=== PATIENT | female | born 1985 | race Caucasian/White ===

== ENCOUNTER 2021-02-20 08:46 | Outpatient (REF) | payer OTHER, SELFPAY ==
[2021-02-20 09:35] LABS: MANUAL DIFF FLAG NO
[2021-02-20 09:48] LABS: Basophils Percent Auto 0.6 % (0-2); Eosinophils Absolute Auto 0.2 X10*3/uL (0.0-0.4); Eosinophils Percent Auto 2.1 % (0-4); Hematocrit 38.3 % (37-47); Hemoglobin 11.8 g/dl (12.0-16.0); Imm Gran Abs Auto 0.03 X10*3/uL (0.00-0.03); Imm Gran Pct Auto 0.4 % (0.0-0.4); Lymphocytes Absolute Auto 2.9 X10*3/uL (1.2-4.9); Lymphocytes Percent Auto 40.5 % (20-40); Mean Corpuscular HGB Conc 30.8 g/dl (31.0-35.0); Mean Corpuscular Hemoglobin 24.7 pg (27.0-33.0); Mean Corpuscular Volume 80.3 fL (80-98); Mean Platelet Volume 10.6 fL (9.4-12.3); Monocytes Absolute Auto 0.6 X10*3/uL (0.1-1.2); Monocytes Percent Auto 7.9 % (2-11); Neutrophils Absolute Auto 3.5 X10*3/uL (2.0-8.3); Neutrophils Percent Auto 48.5 % (45-73); Platelet Count 278 X10*3/uL (160-400); Red Blood Count 4.77 X10*6/uL (4.20-5.50); Red Cell Distribution Width 14.3 % (11.0-16.0); White Blood Count 7.2 X10*3/uL (4.8-10.8)
[2021-02-20 09:56] LABS: Alanine Aminotransferase 31 U/L (0-31); Albumin Level 4.1 g/dL (3.5-5.0); Alkaline Phosphatase 74 U/L (39-117); Anion Gap 14 (12-20); Aspartate Amino Transferase 27 U/L (5-31); Bilirubin Total 0.4 mg/dL (0.0-1.0); Blood Urea Nitrogen 12 mg/dL (9-16); Calcium 9.2 mg/dL (8.4-10.2); Carbon Dioxide 25 mmol/L (22-29); Chloride 104 mmol/L (96-108); Cholesterol 190 mg/dL; Estimated Glomerular Filt Rate > 60; Glucose Fasting 167 mg/dL (60-99); HDL Cholesterol 46 mg/dL; LDL Cholesterol Calculated 107 mg/dl; Potassium 4.4 mmol/L (3.3-5.1); Sodium 139 mmol/L (135-145); Total Protein 7.5 g/dL (6.5-8.0); Triglycerides 187 mg/dL
[2021-02-20 10:16] LABS: Estimated Average Glucose 232 mg/dL; Hemoglobin A1c % 9.7 %
[2021-02-20 10:18] LABS: TSH reflex Free T4 5.92 uIU/mL (0.32-4.0)
[2021-02-20 12:10] LABS: Free T4 (Free Thyroxine) 0.96 ng/dL (0.71-1.85)
[2021-02-20 12:47] LABS: Glucose Urine UA NEG (NEG); Leukocyte Esterase Urine TRACE (NEG); Nitrite Urine NEG (NEG); Specific Gravity - Urine >= 1.030 (1.005-1.025); UACC Culture Trigger YES; Urine Blood NEG (NEG); Urine Ketones NEG (NEG); Urine Protein TRACE MG/DL (NEG-TRACE)
[2021-02-20 12:48] LABS: Appearance Urine CLOUDY; Color Urine YELLOW
[2021-02-20 13:05] LABS: Bacteria Urine 1+ /LPF; Mucus Urine TRACE /LPF; RBC Urine 0 /HPF (0); Squamous Epithelial Cell Urine 2+ /LPF
[2021-02-20 13:18] LABS: Creatinine Urine 168.77 mg/dL; Microalbum/Creatinine Ratio Ur 17.1 ug/mg cr
== END 2021-02-20 08:47 | disposition home or self-care (01) ==
LOC: HO.LAB 08:46
PROVIDERS: PCP Internal Medicine; Visit Provider Internal Medicine
DX: E66.01 Morbid (severe) obesity due to excess calories (principal); Z68.41 Body mass index [BMI] 40.0-44.9, adult; E11.9 Type 2 diabetes mellitus without complications; I10 Essential (primary) hypertension; Z79.4 Long term (current) use of insulin
CPT/HCPCS: 36415; 80053; 80061; 81001; 81003; 82043; 83036; 84439; 84443; 85025; 87086

== ENCOUNTER 2022-11-03 08:01 | Outpatient (REF) | payer OTHER, SELFPAY ==
[2022-11-03 08:10] LABS: MANUAL DIFF FLAG NO
[2022-11-03 08:56] LABS: Basophils Absolute Auto 0.1 X10*3/uL (0.0-0.2); Basophils Percent Auto 0.7 % (0-2); Eosinophils Absolute Auto 0.2 X10*3/uL (0.0-0.4); Eosinophils Percent Auto 2.8 % (0-4); Hematocrit 39.1 % (37.0-47.0); Hemoglobin 12.1 g/dl (12.0-16.0); Imm Gran Abs Auto 0.02 X10*3/uL (0.00-0.03); Imm Gran Pct Auto 0.3 % (0.0-0.4); Lymphocytes Absolute Auto 2.8 X10*3/uL (1.2-4.9); Lymphocytes Percent Auto 38.3 % (20-40); Mean Corpuscular HGB Conc 30.9 g/dl (31.0-35.0); Mean Corpuscular Hemoglobin 24.1 pg (27.0-33.0); Mean Corpuscular Volume 77.7 fL (80.0-98.0); Mean Platelet Volume 10.8 fL (9.4-12.3); Monocytes Absolute Auto 0.6 X10*3/uL (0.1-1.2); Monocytes Percent Auto 8.4 % (2-11); Neutrophils Absolute Auto 3.6 x10*3/uL (2.0-8.3); Neutrophils Percent Auto 49.5 % (45-73); Platelet Count 323 X10*3/uL (160-400); Red Blood Count 5.03 X10*6/uL (4.20-5.50); Red Cell Distribution Width 14.3 % (11.0-16.0); White Blood Count 7.3 X10*3/uL (4.8-10.8)
[2022-11-03 09:06] LABS: Estimated Average Glucose 326 mg/dL
[2022-11-03 09:27] LABS: Alanine Aminotransferase 32 U/L (0-31); Albumin Level 3.8 g/dL (3.5-5.0); Alkaline Phosphatase 68 U/L (39-117); Anion Gap 13 (12-20); Aspartate Amino Transferase 24 U/L (5-31); Bilirubin Total 0.3 mg/dL (0.0-1.0); Blood Urea Nitrogen 8 mg/dL (9-16); Calcium 8.7 mg/dL (8.4-10.2); Carbon Dioxide 26 mmol/L (22-29); Chloride 102 mmol/L (96-108); Cholesterol 199 mg/dL; Estimated Glomerular Filt Rate > 60; Glucose Fasting 271 mg/dL (60-99); HDL Cholesterol 39 mg/dL; LDL Cholesterol Calculated 141 mg/dl; Potassium 4.5 mmol/L (3.3-5.1); Sodium 136 mmol/L (135-145); Total Protein 6.8 g/dL (6.5-8.0); Triglycerides 95 mg/dL
[2022-11-03 09:47] LABS: TSH reflex Free T4 4.71 uIU/mL (0.32-4.0); Vitamin D 25-OH Total 7.5 ng/mL (>30)
[2022-11-03 10:21] LABS: Free T4 (Free Thyroxine) 0.86 ng/dL (0.71-1.85)
[2022-11-03 11:38] LABS: Appearance Urine Cloudy; Color Urine Yellow; Glucose Urine UA >=1000 mg/dL (Negative); Leukocyte Esterase Urine Trace (Negative); Nitrite Urine Negative (Negative); PH 5.5 (5.0-9.0); UMIC TRIGGER UACC YES; Urine Blood Negative (Negative); Urine Ketones Trace mg/dL (Negative); Urine Protein Trace mg/dL (Neg-Trace)
[2022-11-03 12:43] LABS: Creatinine Urine 159.32 mg/dL; Microalbum/Creatinine Ratio Ur 21.3 ug/mg cr
[2022-11-03 12:59] LABS: Bacteria Urine 1+ (None Seen); Hyaline Casts Urine 0-2 /LPF (0-2); RBC Urine 0-2 /HPF (0-2); UACC Culture Trigger YES; WBC Urine >50 /HPF (0-5)
[2022-11-03 13:00] LABS: Specific Gravity - Urine >= 1.030 (1.005-1.025)
== END 2022-11-03 08:02 | disposition home or self-care (01) ==
LOC: HO.LAB 08:01
PROVIDERS: PCP Internal Medicine; Visit Provider Internal Medicine
DX: E78.00 Pure hypercholesterolemia, unspecified (principal); E11.9 Type 2 diabetes mellitus without complications; E55.9 Vitamin D deficiency, unspecified; I10 Essential (primary) hypertension; R82.90 Unspecified abnormal findings in urine
CPT/HCPCS: 36415; 80053; 80061; 81001; 82043; 82306; 83036; 84439; 84443; 85025; 87086; 87147

== ENCOUNTER 2023-02-12 14:00 | Inpatient (IN) | payer SELFPAY ==
--- NOTE | ~2023-02-12 | CT_ITS ---
EXAMINATION: CT ABDOMEN AND PELVIS WITHOUT CONTRAST CLINICAL INFORMATION: Severe abdominal pain with pancreatitis and question of a complication COMPARISON: Abdominal ultrasound 03/26/2009 TECHNIQUE: Multidetector volumetric imaging was performed from the superior aspect of the liver through the pubic symphysis. Sagittal and coronal reformatted images were obtained on the technologist's workstation. This CT examination was performed using dose optimization techniques as appropriate, variously including the following: *Automated exposure control *Adjustment of mA and/or kV according to patient size (this includes techniques or standardized protocols for targeted exams where dose is matched to indication/reason for exam; i.e. extremities or head) *Use of iterative reconstruction technique DLP: 970r mGy-cm FINDINGS: LUNG BASES: The visualized lung bases are unremarkable. No infiltrates or effusions are seen. LIVER, GALLBLADDER, AND BILIARY TREE: The liver is enlarged measuring 19.5 cm in cephalocaudad dimension with decreased attenuation consistent with hepatic steatosis. No focal hepatic lesion or biliary ductal dilatation is present. Patient status post cholecystectomy. PANCREAS: There is evidence of acute pancreatitis with peripancreatic edema surrounding most of the gland, sparing the head. There is thickening of the anterior pararenal and lateral conal fascia. No discrete drainable fluid collections are seen. SPLEEN: There is mild splenomegaly at 12.6 cm. ADRENAL GLANDS: There is a benign 1 cm sized fat density left adrenal adenoma. The right adrenal gland appears normal. KIDNEYS AND URETERS: The kidneys are normal in size, shape, and attenuation. No hydronephrosis, hydroureter, or calculi seen. No perinephric stranding. BLADDER: Unremarkable. GASTROINTESTINAL TRACT: The small and large bowel are unremarkable. The appendix is unremarkable. ABDOMINAL WALL: No significant hernia is appreciated. LYMPH NODES: Normal. VASCULAR: Unremarkable. PELVIC VISCERA: The uterus and adnexa are unremarkable. OSSEOUS STRUCTURES: Unremarkable. CT/CT abdomen pelvis wo IV con IMPRESSION: 1. Acute uncomplicated pancreatitis. 2. Incidental note made of an enlarged fatty liver and mild splenomegaly. 3. Benign 1 cm left adrenal adenoma. Fleischner guidelines were followed.
--- NOTE | ~2023-02-12 | MR_ITS ---
EXAMINATION: MR ABDOMEN WITHOUT CONTRAST CLINICAL INFORMATION: Pancreatitis of unclear etiology. COMPARISON: None available. TECHNIQUE: MR abdomen is performed without gadolinium contrast. Examination was performed for evaluation of the biliary ducts. FINDINGS: Limited exam due to lack of IV contrast. Exam was performed for evaluation of biliary ducts. LUNG BASES: The visualized lung bases are unremarkable. LIVER, GALLBLADDER, AND BILIARY TREE: The liver is enlarged with a craniocaudad dimension measuring 18 cm. In phase and out of phase sequences suggest fatty infiltration. No focal lesion seen. No intrahepatic ductal dilatation seen. The pancreas is homogeneous in signal without any focal lesion or mass. There is a small accessory splenule at the hilum. No peripancreatic fluid collection seen and normal caliber. The gallbladder is unremarkable with no evidence of gallbladder wall thickening, or obvious pericholecystic inflammatory changes. PANCREAS: The pancreas is homogeneous in signal with mild peripancreatic fat stranding. Small pancreatic duct measuring less than 2 mm noted. SPLEEN: The spleen is unremarkable with a small accessory splenule at the hilum. ADRENAL GLANDS: There is a left adrenal 1.1 cm nodule likely fatty infiltrated. The right adrenal gland is normal. KIDNEYS AND URETERS: The kidneys are normal in size and shape. No evidence of hydronephrosis. GASTROINTESTINAL TRACT: No gross abnormality on the visualized images. ABDOMINAL WALL: Not well seen. LYMPH NODES: No abnormal lymph nodes. VASCULAR: Abdominal aorta is normal. OSSEOUS STRUCTURES: Bone marrow signal is homogeneous in the dorsolumbar spine. MR/MR MRCP IMPRESSION: Normal size common bile duct and pancreatic duct. No intraluminal filling defect, narrowing or obstruction. No intrahepatic ductal dilatation. Mild peripancreatic fat stranding along the tail similar to CT abdomen scan 02/12/2023. Small 1.1 cm left adrenal lesion likely benign adenoma. It measured -[address] abdomen exam.
--- NOTE | 2023-02-12 14:02 | ECG_ITS ---
Test Reason : CHEST PAIN Blood Pressure : / mmHG Vent. Rate : 118 BPM Atrial Rate : 118 BPM P-R Int : 130 ms QRS Dur : 088 ms QT Int : 346 ms P-R-T Axes : 075 000 053 degrees QTc Int : 484 ms Sinus tachycardia Possible Left atrial enlargement Left ventricular hypertrophy ( R in aVL , Neville product ) Abnormal ECG No previous ECGs available Referred By: Generic ED Physician Electronically Signed By:ANSON COOLEY MD
[2023-02-12 14:24] VITALS: BP 100/56; PULSE 94; RESP 17; TEMP 36.7; O2SAT 98; BMI 44.6
[2023-02-12 15:04] LABS: MANUAL DIFF FLAG NO
[2023-02-12 15:04] LABS: Glucose, Whole Blood 337 mg/dL (60-115)
[2023-02-12 15:05] LABS: Basophils Absolute Auto 0.1 X10*3/uL (0.0-0.2); Basophils Percent Auto 0.4 % (0-2); Eosinophils Absolute Auto 0.1 X10*3/uL (0.0-0.4); Eosinophils Percent Auto 0.8 % (0-4); Hematocrit 42.1 % (37.0-47.0); Hemoglobin 13.2 g/dl (12.0-16.0); Imm Gran Abs Auto 0.05 X10*3/uL (0.00-0.03); Imm Gran Pct Auto 0.3 % (0.0-0.4); Lymphocytes Absolute Auto 2.4 X10*3/uL (1.2-4.9); Lymphocytes Percent Auto 15.3 % (20-40); Mean Corpuscular HGB Conc 31.4 g/dl (31.0-35.0); Mean Corpuscular Hemoglobin 24.4 pg (27.0-33.0); Mean Platelet Volume 10.5 fL (9.4-12.3); Monocytes Absolute Auto 1.4 X10*3/uL (0.1-1.2); Monocytes Percent Auto 8.6 % (2-11); Neutrophils Absolute Auto 11.7 x10*3/uL (2.0-8.3); Neutrophils Percent Auto 74.6 % (45-73); Platelet Count 383 X10*3/uL (160-400); Red Cell Distribution Width 14.2 % (11.0-16.0); White Blood Count 15.7 X10*3/uL (4.8-10.8)
[2023-02-12 15:15] LABS: Acetone, serum QL Negative (Negative)
[2023-02-12 15:53] LABS: Alanine Aminotransferase 37 U/L (0-31); Albumin Level 3.9 g/dL (3.5-5.0); Alkaline Phosphatase 76 U/L (39-117); Anion Gap 15 (12-20); Aspartate Amino Transferase 35 U/L (5-31); Bilirubin Direct 0.1 mg/dL (0.0-0.5); Bilirubin Total 0.4 mg/dL (0.0-1.0); Blood Urea Nitrogen 10 mg/dL (9-16); Calcium 9.8 mg/dL (8.4-10.2); Carbon Dioxide 26 mmol/L (22-29); Chloride 101 mmol/L (96-108); Creatinine Clr Calc Pharmacy 105.7; Estimated Glomerular Filt Rate > 60; Glucose Random 363 mg/dL (60-115); Lipase > 3000 U/L (8-78); Potassium 3.9 mmol/L (3.3-5.1); Sodium 138 mmol/L (135-145); Total Protein 7.4 g/dL (6.5-8.0)
[2023-02-12 18:07] LABS: Appearance Urine Clear; Color Urine Yellow; Glucose Urine UA >=1000 mg/dL (Negative); Leukocyte Esterase Urine Negative (Negative); Nitrite Urine Negative (Negative); UMIC TRIGGER UACC YES; Urine Blood Negative (Negative); Urine Ketones Trace mg/dL (Negative); Urine Protein Negative (Neg-Trace)
[2023-02-12 18:15] LABS: Bacteria Urine None Seen (None Seen); Squamous Epithelial Cell Urine 0-2 /HPF (0-2); WBC Urine 0-5 /HPF (0-5)
--- NOTE | 2023-02-12 18:21 | ED.GENADULT ---
HPI - General Adult General Chief complaint: General Medical Stated complaint: chest pain Time Seen by Provider: 02/12/23 18:07 Source: patient Mode of arrival: ambulatory Limitations: no limitations History of Present Illness HPI narrative: 37-year-old female history of DM, HTN came in for evaluation of abdominal pain. 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 Patient declined any alcohol abuse or drugs abuse. Patient is morbid obese with uncontrolled diabetes. Related Data Home Medications Medication Instructions Recorded Confirmed acetaminophen 500 mg tablet 500 mg PO Q6H PRN Fever Or Pain 02/12/23 02/12/23 albuterol sulfate 90 mcg/actuation 2 puff inhalation Q4H PRN Wheezing 02/12/23 02/12/23 aerosol inhaler hydroxyzine HCl 50 mg tablet 50 mg PO DAILY PRN for anxiety 02/12/23 02/12/23 ibuprofen 200 mg tablet 200 mg PO Q6H PRN Fever Or Pain 02/12/23 02/12/23 insulin glargine 100 unit/mL 50 unit subcut DAILY 02/12/23 02/12/23 subcutaneous solution insulin lispro 100 unit/mL 20 unit subcut DAILY 02/12/23 02/12/23 subcutaneous solution metformin 500 mg tablet,extended 1,500 mg PO DAILY 02/12/23 02/12/23 release 24 hr Previous Rx's Medication Instructions Recorded insulin syringe,safetyneedle 1 mL #100 ea 06/05/21 30 gauge x 5/16 FreeStyle Kenny 14 Day Lilly #1 ea 11/04/22 (flash glucose scanning reader) FreeStyle Kenny 14 Day Sensor #1 ea 11/04/22 (flash glucose sensor) cholecalciferol (vitamin D3) 50 50 mcg PO DAILY 90 days #90 caps 11/04/22 mcg (2,000 unit) capsule gabapentin 400 mg capsule 400 mg PO BID 30 days #60 caps 11/04/22 lisinopril 20 mg tablet 20 mg PO DAILY 90 days #90 tabs 11/10/22 flash glucose scanning reader #1 ea 11/15/22 (FreeStyle Kenny 2 Lilly) flash glucose sensor (FreeStyle #1 ea 11/15/22 Kenny 2 Sensor kit) Allergies Allergy/AdvReac Type Severity Reaction Status Date / Time No Known Allergies Allergy Unknown UNKNOWN Verified 11/04/22 10:50 Review of Systems Review of Systems: All other systems are reviewed and are negative Constitutional: Reports as per HPI and Reports no additional constitutional complaints Eyes: Reports as per HPI and Reports no additional eye complaints Reports system reviewed and no additional complaints, except as documented Cardiovascular: Reports as per HPI and Reports no additional cardiovascular complaints Respiratory: Reports as per HPI and Reports no additional respiratory complaints Gastrointestinal: Reports as per HPI and Reports no additional gastrointestinal complaints Genitourinary: Reports no additional female genitourinary complaints Musculoskeletal: Reports no additional musculoskeletal complaints Skin/Breast: Reports system reviewed and no additional complaints, except as docu Psychiatric: Reports no additional psychiatric complaints Endocrine: Reports no additional endocrine complaints Hematologic/Lymphatic: Reports no additional hematologic/lymphatic complaints Allergic/Immunologic: Reports no additional allergic/immunologic complaints Reports system reviewed and no additional complaints, except as documented and Reports Abnormal speech present [facility] Past Medical History Medical History Anxiety Benign essential hypertension Carpal tunnel syndrome Diabetes mellitus Morbid obesity with BMI of 40.0-44.9, adult Pure hypercholesterolemia Vitamin D deficiency Surgical History No significant past surgical history Family History Family History Mother Hypertension Hyperlipidemia Social History Social History Household Members: Significant Other and Children Housing: House Alcohol intake: never Patient Tobacco Use Status: Current everyday Tobacco user Cigarettes Per Day: 2 e-Cigarette/Vaping Use: Never Used Advance Directives: No Advance Directives Information Provided: No service: No Current occupational status: employed Current occupation: ophthalmic medical technician Cognitive needs: No Hearing needs: No Vision needs: No Physical Exam ED Vital Signs: Vital Signs - 24 hr 02/12/23 14:24 02/12/23 18:44 02/12/23 20:24 Temperature 98.0 F 98.8 F Pulse Rate 94 93 76 Respiratory Rate 17 16 17 Blood Pressure 100/56 L 158/78 H 156/80 H Pulse Oximetry 98 92 93 Oxygen Delivery Method Room Air Room Air Room Air BMI result Body Mass Index 44.6 Vital signs have been reviewed as appeared to be correct. Blood pressure normal. Heart rate normal. Respiration rate normal. Temperature normal. Oxygen saturation normal. Appearance: Alert. Oriented X3. No acute distress. Head: Normal external exam. Normocephalic. Atraumatic. No Davis signs noted. No raccoon eyes noted Eyes: PERRLA. EOMI. Conjunctiva and sclera normal. Eyelids normal. ENT: TM's Normal. Pharynx normal. Uvula midline. Moist mucous membranes. No trismus noted. No drooling noted. No muffled voice noted. Neck: Normal inspection. Neck supple. FROM. No adenopathy. Thyroid Normal. No meningeal signs. No neck mass noted. CVS: Normal heart rate and rhythm. Heart sound normal. No murmurs noted. Pulses normal throughout. Respiratory: No respiratory distress. Painless inspiration. Breath sounds normal. No wheezes/rales/rhonchi noted. Chest nontender. No accessory muscle usage noted or decreased air movement noted. Abdomen: Soft, diffuse nonfocal abdominal tenderness with no rebound tenderness. Bowel sounds normal in all 4 quadrants. No distention noted. No organomegaly noted. No visible injury noted. Back: No CVA tenderness. Full range of motion noted. Skin: Skin warm and dry. Normal skin color. Normal skin turgor. No rashes/lesions/lacerations noted. Extremities: No lower extremity edema. Extremities exhibit normal range of motion. Extremities nontender. Neuro: Oriented X 3. Cranial nerve exam: II-XII are grossly intact No motor deficit. No sensory deficit. Reflexes normal. Course Course Course Narrative: 37-year-old female came in with acute uncomplicated acute pancreatitis, patient with no history of alcohol consumption, with no hypertriglyceridemia history. Patient required Dilaudid to control her pain will admit for IV hydration, pain control. Hyperglycemia which is controlled with IV insulin. Medications Administered Discontinued Medications Generic Name Dose Route Start Last Admin Trade Name Freq PRN Reason Stop Dose Admin Hydromorphone HCl 2 mg 02/12/23 18:17 02/12/23 18:40 Hydromorphone Hcl 2 Mg/Ml Vial IVPUSH 02/12/23 18:18 2 mg ONCE ONE Administration Protocol Sodium Chloride 1,000 mls @ 999 mls/hr 02/12/23 18:13 02/12/23 20:52 Ns IV 02/12/23 19:13 Infused .Q1H1M ONE Infusion Insulin Human Regular 5 unit 02/12/23 18:13 02/12/23 18:40 Insulin Regular, Human 100 Unit/Ml 3 Ml Vial IVPUSH 02/12/23 18:14 5 unit ONCE ONE Administration Insulin Human Regular 5 unit 02/12/23 19:08 02/12/23 19:13 Insulin Regular, Human 100 Unit/Ml 3 Ml Vial IVPUSH 02/12/23 19:09 5 unit ONCE ONE Administration Ondansetron HCl 4 mg 02/12/23 18:13 02/12/23 18:40 Ondansetron Hcl 4 Mg/2 Ml Vial IVPUSH 02/12/23 18:14 4 mg ONCE ONE Administration Medical Decision Making Differential Diagnosis Differential Diagnoses: The differential diagnosis associated with the presentation includes (Acute pancreatitis, dehydration, acute intra-abdominal pathology, colitis, diverticulitis, acute appendicitis, left toe lytes abnormalities, severe anemia, , UTI.) Admission/Observation Consideration of admission/observation: Escalation of care including admission/observation considered Consult Healthcare Provider Management of the patient was discussed with: Hospitalist (Dr. jimenez) Lab Data MDM Lab Attestation statement: I reviewed the patient's lab results. 02/12/23 14:59 02/12/23 14:59 Labs: Lab Results 02/12/23 02/12/23 02/12/23 Range/Units 14:54 14:59 14:59 WBC 15.7 H (4.8-10.8) X10*3/uL RBC 5.40 (4.20-5.50) X10*6/uL Hgb 13.2 (12.0-16.0) g/dl Hct 42.1 (37.0-47.0) % MCV 78.0 L (80.0-98.0) fL MCH 24.4 L (27.0-33.0) pg MCHC 31.4 (31.0-35.0) g/dl RDW 14.2 (11.0-16.0) % Plt Count 383 (160-400) X10*3/uL MPV 10.5 (9.4-12.3) fL Immature Gran % (Auto) 0.3 (0.0-0.4) % Neut % (Auto) 74.6 H (45-73) % Lymph % (Auto) 15.3 L (20-40) % [place] % (Auto) 8.6 (2-11) % Eos % (Auto) 0.8 (0-4) % Baso % (Auto) 0.4 (0-2) % Lymph # (Auto) 2.4 (1.2-4.9) X10*3/uL [place] # (Auto) 1.4 H (0.1-1.2) X10*3/uL Eos # (Auto) 0.1 (0.0-0.4) X10*3/uL Baso # (Auto) 0.1 (0.0-0.2) X10*3/uL Abs Immat Gran (auto) 0.05 H (0.00-0.03) X10*3/uL Absolute Neuts (auto) 11.7 H (2.0-8.3) x10*3/uL Absolute Nucleated RBC 0.000 (0.0-0.012) X10*3/uL Nucleated RBC % (auto) 0.0 (0.0-0.2) /100WBC Sodium 138 (135-145) mmol/L Potassium 3.9 (3.3-5.1) mmol/L Chloride 101 (96-108) mmol/L Carbon Dioxide 26 (22-29) mmol/L Anion Gap 15 (12-20) BUN 10 (9-16) mg/dL Creatinine 1.01 (0.5-1.4) mg/dL Estim Creat Clear Calc 105.7 Estimated GFR > 60 POC Glucose 337 H (60-115) mg/dL Random Glucose 363 H* (60-115) mg/dL Calcium 9.8 D (8.4-10.2) mg/dL Total Bilirubin 0.4 (0.0-1.0) mg/dL Direct Bilirubin 0.1 (0.0-0.5) mg/dL AST 35 H (5-31) U/L ALT 37 H (0-31) U/L Alkaline Phosphatase 76 (39-117) U/L Troponin I High Sens (<3.5-17.0) ng/L Total Protein 7.4 (6.5-8.0) g/dL Albumin 3.9 (3.5-5.0) g/dL Triglycerides mg/dL Cholesterol mg/dL LDL Cholesterol, Calc mg/dl HDL Cholesterol mg/dL Lipase > 3000 H (8-78) U/L Beta HCG, Quant mIU/mL Urine Color Urine Appearance Urine pH (5.0-9.0) Ur Specific [place] (1.005-1.025) Urine Protein (Neg-Trace) mg/dL Urine Glucose (UA) (Negative) mg/dL Urine Ketones (Negative) mg/dL Urine Blood (Negative) Urine Nitrite (Negative) Ur Leukocyte Esterase (Negative) Urine RBC (0-2) /HPF Urine WBC (0-5) /HPF Ur Squamous Epith Cells (0-2) /HPF Urine Bacteria (None Seen) Hyaline Casts (0-2) /LPF Ethyl Alcohol mg/dL Acetone, Qual (Negative) 02/12/23 02/12/23 02/12/23 Range/Units 14:59 14:59 18:01 WBC (4.8-10.8) X10*3/uL RBC (4.20-5.50) X10*6/uL Hgb (12.0-16.0) g/dl Hct (37.0-47.0) % MCV (80.0-98.0) fL MCH (27.0-33.0) pg MCHC (31.0-35.0) g/dl RDW (11.0-16.0) % Plt Count (160-400) X10*3/uL MPV (9.4-12.3) fL Immature Gran % (Auto) (0.0-0.4) % Neut % (Auto) (45-73) % Lymph % (Auto) (20-40) % [place] % (Auto) (2-11) % Eos % (Auto) (0-4) % Baso % (Auto) (0-2) % Lymph # (Auto) (1.2-4.9) X10*3/uL [place] # (Auto) (0.1-1.2) X10*3/uL Eos # (Auto) (0.0-0.4) X10*3/uL Baso # (Auto) (0.0-0.2) X10*3/uL Abs Immat Gran (auto) (0.00-0.03) X10*3/uL Absolute Neuts (auto) (2.0-8.3) x10*3/uL Absolute Nucleated RBC (0.0-0.012) X10*3/uL Nucleated RBC % (auto) (0.0-0.2) /100WBC Sodium (135-145) mmol/L Potassium (3.3-5.1) mmol/L Chloride (96-108) mmol/L Carbon Dioxide (22-29) mmol/L Anion Gap (12-20) BUN (9-16) mg/dL Creatinine (0.5-1.4) mg/dL Estim Creat Clear Calc Estimated GFR POC Glucose (60-115) mg/dL Random Glucose (60-115) mg/dL Calcium (8.4-10.2) mg/dL Total Bilirubin (0.0-1.0) mg/dL Direct Bilirubin (0.0-0.5) mg/dL AST (5-31) U/L ALT (0-31) U/L Alkaline Phosphatase (39-117) U/L Troponin I High Sens 4.0 (<3.5-17.0) ng/L Total Protein (6.5-8.0) g/dL Albumin (3.5-5.0) g/dL Triglycerides mg/dL Cholesterol mg/dL LDL Cholesterol, Calc mg/dl HDL Cholesterol mg/dL Lipase (8-78) U/L Beta HCG, Quant mIU/mL Urine Color Yellow Urine Appearance Clear Urine pH 5.0 (5.0-9.0) Ur Specific [place] 1.020 (1.005-1.025) Urine Protein Negative (Neg-Trace) mg/dL Urine Glucose (UA) >=1000 H (Negative) mg/dL Urine Ketones Trace (Negative) mg/dL Urine Blood Negative (Negative) Urine Nitrite Negative (Negative) Ur Leukocyte Esterase Negative (Negative) Urine RBC 3-5 H (0-2) /HPF Urine WBC 0-5 (0-5) /HPF Ur Squamous Epith Cells 0-2 (0-2) /HPF Urine Bacteria None Seen (None Seen) Hyaline Casts 11-20 (0-2) /LPF Ethyl Alcohol mg/dL Acetone, Qual Negative (Negative) 02/12/23 02/12/23 02/12/23 Range/Units 18:35 18:35 18:58 WBC (4.8-10.8) X10*3/uL RBC (4.20-5.50) X10*6/uL Hgb (12.0-16.0) g/dl Hct (37.0-47.0) % MCV (80.0-98.0) fL MCH (27.0-33.0) pg MCHC (31.0-35.0) g/dl RDW (11.0-16.0) % Plt Count (160-400) X10*3/uL MPV (9.4-12.3) fL Immature Gran % (Auto) (0.0-0.4) % Neut % (Auto) (45-73) % Lymph % (Auto) (20-40) % [place] % (Auto) (2-11) % Eos % (Auto) (0-4) % Baso % (Auto) (0-2) % Lymph # (Auto) (1.2-4.9) X10*3/uL [place] # (Auto) (0.1-1.2) X10*3/uL Eos # (Auto) (0.0-0.4) X10*3/uL Baso # (Auto) (0.0-0.2) X10*3/uL Abs Immat Gran (auto) (0.00-0.03) X10*3/uL Absolute Neuts (auto) (2.0-8.3) x10*3/uL Absolute Nucleated RBC (0.0-0.012) X10*3/uL Nucleated RBC % (auto) (0.0-0.2) /100WBC Sodium (135-145) mmol/L Potassium (3.3-5.1) mmol/L Chloride (96-108) mmol/L Carbon Dioxide (22-29) mmol/L Anion Gap (12-20) BUN (9-16) mg/dL Creatinine (0.5-1.4) mg/dL Estim Creat Clear Calc Estimated GFR POC Glucose 403 H* (60-115) mg/dL Random Glucose (60-115) mg/dL Calcium (8.4-10.2) mg/dL Total Bilirubin (0.0-1.0) mg/dL Direct Bilirubin (0.0-0.5) mg/dL AST (5-31) U/L ALT (0-31) U/L Alkaline Phosphatase (39-117) U/L Troponin I High Sens (<3.5-17.0) ng/L Total Protein (6.5-8.0) g/dL Albumin (3.5-5.0) g/dL Triglycerides 97 mg/dL Cholesterol 220 mg/dL LDL Cholesterol, Calc 159 mg/dl HDL Cholesterol 42 mg/dL Lipase (8-78) U/L Beta HCG, Quant < 2 mIU/mL Urine Color Urine Appearance Urine pH (5.0-9.0) Ur Specific [place] (1.005-1.025) Urine Protein (Neg-Trace) mg/dL Urine Glucose (UA) (Negative) mg/dL Urine Ketones (Negative) mg/dL Urine Blood (Negative) Urine Nitrite (Negative) Ur Leukocyte Esterase (Negative) Urine RBC (0-2) /HPF Urine WBC (0-5) /HPF Ur Squamous Epith Cells (0-2) /HPF Urine Bacteria (None Seen) Hyaline Casts (0-2) /LPF Ethyl Alcohol < 10 mg/dL Acetone, Qual (Negative) 02/12/23 Range/Units 20:25 WBC (4.8-10.8) X10*3/uL RBC (4.20-5.50) X10*6/uL Hgb (12.0-16.0) g/dl Hct (37.0-47.0) % MCV (80.0-98.0) fL MCH (27.0-33.0) pg MCHC (31.0-35.0) g/dl RDW (11.0-16.0) % Plt Count (160-400) X10*3/uL MPV (9.4-12.3) fL Immature Gran % (Auto) (0.0-0.4) % Neut % (Auto) (45-73) % Lymph % (Auto) (20-40) % [place] % (Auto) (2-11) % Eos % (Auto) (0-4) % Baso % (Auto) (0-2) % Lymph # (Auto) (1.2-4.9) X10*3/uL [place] # (Auto) (0.1-1.2) X10*3/uL Eos # (Auto) (0.0-0.4) X10*3/uL Baso # (Auto) (0.0-0.2) X10*3/uL Abs Immat Gran (auto) (0.00-0.03) X10*3/uL Absolute Neuts (auto) (2.0-8.3) x10*3/uL Absolute Nucleated RBC (0.0-0.012) X10*3/uL Nucleated RBC % (auto) (0.0-0.2) /100WBC Sodium (135-145) mmol/L Potassium (3.3-5.1) mmol/L Chloride (96-108) mmol/L Carbon Dioxide (22-29) mmol/L Anion Gap (12-20) BUN (9-16) mg/dL Creatinine (0.5-1.4) mg/dL Estim Creat Clear Calc Estimated GFR POC Glucose 327 H (60-115) mg/dL Random Glucose (60-115) mg/dL Calcium (8.4-10.2) mg/dL Total Bilirubin (0.0-1.0) mg/dL Direct Bilirubin (0.0-0.5) mg/dL AST (5-31) U/L ALT (0-31) U/L Alkaline Phosphatase (39-117) U/L Troponin I High Sens (<3.5-17.0) ng/L Total Protein (6.5-8.0) g/dL Albumin (3.5-5.0) g/dL Triglycerides mg/dL Cholesterol mg/dL LDL Cholesterol, Calc mg/dl HDL Cholesterol mg/dL Lipase (8-78) U/L Beta HCG, Quant mIU/mL Urine Color Urine Appearance Urine pH (5.0-9.0) Ur Specific [place] (1.005-1.025) Urine Protein (Neg-Trace) mg/dL Urine Glucose (UA) (Negative) mg/dL Urine Ketones (Negative) mg/dL Urine Blood (Negative) Urine Nitrite (Negative) Ur Leukocyte Esterase (Negative) Urine RBC (0-2) /HPF Urine WBC (0-5) /HPF Ur Squamous Epith Cells (0-2) /HPF Urine Bacteria (None Seen) Hyaline Casts (0-2) /LPF Ethyl Alcohol mg/dL Acetone, Qual (Negative) Independent Interpretation I performed an independent interpretation of an: CT Scan (Abdomen and pelvis: Acute noncomplicated pancreatitis.) Radiology Impression Discussion of test interpretation with radiology: I have reviewed the radiologist's reading. Chronic Conditions Patient?s care impacted by: Diabetes Discharge Plan Discharge Clinical Impression: Acute pancreatitis, Acute hyperglycemia Patient Disposition: Admitted As Inpatient
[2023-02-12] MEDS: 0.9 % Sodium Chloride 1,000 ML 999 ML IV (18:40)
[2023-02-12] MEDS: HYDROmorphone HCl 2 MG/ML VIAL IVPUSH (18:40)
[2023-02-12] MEDS: ondansetron HCL 4 MG/2 ML VIAL IVPUSH (18:40)
[2023-02-12] MEDS: Insulin Regular, Human 100 UNIT/ML 3 ML VIAL IVPUSH ×2 (18:40→19:13)
[2023-02-12 18:44] VITALS: BP 158/78; PULSE 93; RESP 16; TEMP 37.1; O2SAT 92
--- NOTE | 2023-02-12 18:45 | PC.NURSE ---
alert and oriented, resp even and unlabored. iv established, medicated per the mar. awaiting ct scan
--- NOTE | 2023-02-12 18:54 | PHA.MEDREC ---
Pharmacy Consult ? Medication Reconciliation Pharmacy has completed the medication reconciliation. spoke with patient. Takes 1500mg of metformin daily instead of 1000mg BID. The humalog is supposed to be on a sliding scale with meals however she takes 20 units daily instead. She also said she takes 50 units of the Lantus.
[2023-02-12 19:02] LABS: Cholesterol 220 mg/dL; HDL Cholesterol 42 mg/dL; LDL Cholesterol Calculated 159 mg/dl; Triglycerides 97 mg/dL
[2023-02-12 19:03] LABS: Glucose, Whole Blood 403 mg/dL (60-115)
[2023-02-12 19:07] LABS: Ethanol < 10 mg/dL
[2023-02-12 19:10] LABS: HCG Quantitative < 2 mIU/mL
--- NOTE | 2023-02-12 19:10 | PC.NURSE ---
this rn assumed care of pt @ 1900. poc [address] de la fuente aware of poc. pt medicated according to mar. family at bedside. pt reports decreased pain at this time
[2023-02-12 20:24] VITALS: BP 156/80; PULSE 76; RESP 17; O2SAT 93
[2023-02-12 20:29] LABS: Glucose, Whole Blood 327 mg/dL (60-115)
--- NOTE | 2023-02-12 20:55 | PM.IMHP ---
History of Present Illness Date of Service: 02/12/23 Chief Complaint: Abdominal Pain This is a 37-year-old female with pertinent history of insulin-dependent diabetes mellitus, essential hypertension, generalized anxiety disorder, mixed hyperlipidemia presents to the emergency department for evaluation of abdominal discomfort. Patient states around 14:00, she had sudden onset of epigastric abdominal discomfort. It remained constant, nonradiating without any relieving factors. No history of similar complaints in the past. Patient also had 3 episodes of nonbloody emesis after the onset of abdominal discomfort. She denies significant alcohol use. Had a cholecystectomy when she was 10 years old. Patient denies fever, chills, palpitations, chest discomfort, shortness of breath, changes in urinary habits In the emergency department, imaging concerning for acute pancreatitis and lipase was found to be significantly elevated Review of Systems Constitutional: Constitutional: Reports no additional constitutional complaints Cardiovascular: Cardiovascular: Reports no additional cardiovascular complaints Respiratory: Respiratory: Reports no additional respiratory complaints Gastrointestinal: Gastrointestinal: Reports abdominal pain, Reports nausea and Reports vomiting Genitourinary: Genitourinary: Reports no additional female genitourinary complaints Musculoskeletal: Musculoskeletal: Reports no additional musculoskeletal complaints [facility] Medical History Anxiety Benign essential hypertension Carpal tunnel syndrome Diabetes mellitus Morbid obesity with BMI of 40.0-44.9, adult Pure hypercholesterolemia Vitamin D deficiency Family History Mother Hypertension Hyperlipidemia Surgical History No significant past surgical history Social History Household Members: Significant Other and Children Housing: House Alcohol intake: never Patient Tobacco Use Status: Current everyday Tobacco user Cigarettes Per Day: 2 e-Cigarette/Vaping Use: Never Used Advance Directives: No Advance Directives Information Provided: No service: No Current occupational status: employed Current occupation: medical device assembler Cognitive needs: No Hearing needs: No Vision needs: No Meds Allergies Allergy/AdvReac Type Severity Reaction Status Date / Time No Known Allergies Allergy Unknown UNKNOWN Verified 11/04/22 10:50 Active Medications: Current Medications Pharmacy Consult (Consult Rx Perform Med Rec) 1 each MISCELLANE ONCE PRN PRN Reason: Consult order Home Medications Medication Instructions Recorded Confirmed Last Taken Type acetaminophen 500 mg tablet 500 mg PO Q6H PRN Fever Or Pain 02/12/23 02/12/23 Unknown History albuterol sulfate 90 mcg/actuation 2 puff inhalation Q4H PRN Wheezing 02/12/23 02/12/23 Unknown History aerosol inhaler hydroxyzine HCl 50 mg tablet 50 mg PO DAILY PRN for anxiety 02/12/23 02/12/23 Unknown History ibuprofen 200 mg tablet 200 mg PO Q6H PRN Fever Or Pain 02/12/23 02/12/23 Unknown History insulin glargine 100 unit/mL 50 unit subcut DAILY 02/12/23 02/12/23 Unknown History subcutaneous solution insulin lispro 100 unit/mL 20 unit subcut DAILY 02/12/23 02/12/23 Unknown History subcutaneous solution metformin 500 mg tablet,extended 1,500 mg PO DAILY 02/12/23 02/12/23 Unknown History release 24 hr Physical Exam Vital Signs and Narrative: Vital Signs: Last Vital Signs Temp 98.8 F 02/12/23 18:44 Pulse 76 02/12/23 20:24 Resp 17 02/12/23 20:24 BP 156/80 H 02/12/23 20:24 Pulse Ox 93 02/12/23 20:24 O2 Del Method Room Air 02/12/23 20:24 BMI result Body Mass Index 44.6 Young female lying in bed in mild distress Neck supple, no JVD Regular rate and rhythm, S1-S2 heard Regular breath sounds bilaterally, no wheezing or crackles appreciated Abdomen with epigastric tenderness to mild palpation, no guarding, no rigidity, no rebound tenderness Patient is awake, alert and oriented to self, place, time and person ; no focal motor deficit Psych: Normal mood No pedal edema Results Labs 02/12/23 14:59 02/12/23 14:59 Labs: Laboratory Results - last 24 hr 02/12/23 02/12/23 02/12/23 14:54 14:59 14:59 MCV 78.0 L MCH 24.4 L MCHC 31.4 RDW 14.2 Plt Count 383 MPV 10.5 Immature Gran % (Auto) 0.3 Neut % (Auto) 74.6 H Lymph % (Auto) 15.3 L [place] % (Auto) 8.6 Eos % (Auto) 0.8 Baso % (Auto) 0.4 Lymph # (Auto) 2.4 [place] # (Auto) 1.4 H Eos # (Auto) 0.1 Baso # (Auto) 0.1 Abs Immat Gran (auto) 0.05 H Absolute Neuts (auto) 11.7 H Absolute Nucleated RBC 0.000 Nucleated RBC % (auto) 0.0 Anion Gap 15 Estim Creat Clear Calc 105.7 Estimated GFR > 60 POC Glucose 337 H Random Glucose 363 H* Calcium 9.8 D Total Bilirubin 0.4 Direct Bilirubin 0.1 AST 35 H ALT 37 H Alkaline Phosphatase 76 Troponin I High Sens Total Protein 7.4 Albumin 3.9 Triglycerides Cholesterol LDL Cholesterol, Calc HDL Cholesterol Lipase > 3000 H Beta HCG, Quant Urine Color Urine Appearance Urine pH Ur Specific [place] Urine Protein Urine Glucose (UA) Urine Ketones Urine Blood Urine Nitrite Ur Leukocyte Esterase Urine RBC Urine WBC Ur Squamous Epith Cells Urine Bacteria Hyaline Casts Ethyl Alcohol Acetone, Qual 02/12/23 02/12/23 02/12/23 14:59 14:59 18:01 MCV MCH MCHC RDW Plt Count MPV Immature Gran % (Auto) Neut % (Auto) Lymph % (Auto) [place] % (Auto) Eos % (Auto) Baso % (Auto) Lymph # (Auto) [place] # (Auto) Eos # (Auto) Baso # (Auto) Abs Immat Gran (auto) Absolute Neuts (auto) Absolute Nucleated RBC Nucleated RBC % (auto) Anion Gap Estim Creat Clear Calc Estimated GFR POC Glucose Random Glucose Calcium Total Bilirubin Direct Bilirubin AST ALT Alkaline Phosphatase Troponin I High Sens 4.0 Total Protein Albumin Triglycerides Cholesterol LDL Cholesterol, Calc HDL Cholesterol Lipase Beta HCG, Quant Urine Color Yellow Urine Appearance Clear Urine pH 5.0 Ur Specific [place] 1.020 Urine Protein Negative Urine Glucose (UA) >=1000 H Urine Ketones Trace Urine Blood Negative Urine Nitrite Negative Ur Leukocyte Esterase Negative Urine RBC 3-5 H Urine WBC 0-5 Ur Squamous Epith Cells 0-2 Urine Bacteria None Seen Hyaline Casts 11-20 Ethyl Alcohol Acetone, Qual Negative 02/12/23 02/12/23 02/12/23 18:35 18:35 18:58 MCV MCH MCHC RDW Plt Count MPV Immature Gran % (Auto) Neut % (Auto) Lymph % (Auto) [place] % (Auto) Eos % (Auto) Baso % (Auto) Lymph # (Auto) [place] # (Auto) Eos # (Auto) Baso # (Auto) Abs Immat Gran (auto) Absolute Neuts (auto) Absolute Nucleated RBC Nucleated RBC % (auto) Anion Gap Estim Creat Clear Calc Estimated GFR POC Glucose 403 H* Random Glucose Calcium Total Bilirubin Direct Bilirubin AST ALT Alkaline Phosphatase Troponin I High Sens Total Protein Albumin Triglycerides 97 Cholesterol 220 LDL Cholesterol, Calc 159 HDL Cholesterol 42 Lipase Beta HCG, Quant < 2 Urine Color Urine Appearance Urine pH Ur Specific [place] Urine Protein Urine Glucose (UA) Urine Ketones Urine Blood Urine Nitrite Ur Leukocyte Esterase Urine RBC Urine WBC Ur Squamous Epith Cells Urine Bacteria Hyaline Casts Ethyl Alcohol < 10 Acetone, Qual 02/12/23 20:25 MCV MCH MCHC RDW Plt Count MPV Immature Gran % (Auto) Neut % (Auto) Lymph % (Auto) [place] % (Auto) Eos % (Auto) Baso % (Auto) Lymph # (Auto) [place] # (Auto) Eos # (Auto) Baso # (Auto) Abs Immat Gran (auto) Absolute Neuts (auto) Absolute Nucleated RBC Nucleated RBC % (auto) Anion Gap Estim Creat Clear Calc Estimated GFR POC Glucose 327 H Random Glucose Calcium Total Bilirubin Direct Bilirubin AST ALT Alkaline Phosphatase Troponin I High Sens Total Protein Albumin Triglycerides Cholesterol LDL Cholesterol, Calc HDL Cholesterol Lipase Beta HCG, Quant Urine Color Urine Appearance Urine pH Ur Specific [place] Urine Protein Urine Glucose (UA) Urine Ketones Urine Blood Urine Nitrite Ur Leukocyte Esterase Urine RBC Urine WBC Ur Squamous Epith Cells Urine Bacteria Hyaline Casts Ethyl Alcohol Acetone, Qual Assessment and Plan (1) Acute pancreatitis: Status: Acute Plan This is a 37-year-old female with pertinent history of insulin-dependent diabetes mellitus, essential hypertension, generalized anxiety disorder, mixed hyperlipidemia presents to the emergency department for evaluation of abdominal discomfort. #. Acute pancreatitis. Patient denies significant alcohol use. No biliary ductal dilatation on imaging. Triglyceride level normal. Will admit patient and continue IV crystalloid resuscitation. IV morphine p.r.n. for pain control. Npo for bowel rest #. Insulin-dependent diabetes mellitus with hyperglycemia. Reduce home basal insulin. Initiating Accu-Cheks with sliding scale insulin every 6 hours #. Essential hypertension. Patient on lisinopril, Class III for drug induced pancreatitis #. Generalized anxiety disorder. On hydroxyzine p.r.n. #. Reactive leukocytosis #. Transaminitis. Likely in the setting of MAYA Med rec pending DVT prophylaxis: Lovenox Full code Npo, advance diet as tolerated Admit as inpatient and will require two night minimum hospital stay for treatment of acute pancreatitis. Advance diet as tolerated Time Spent With Patient Time: Total time managing care of this patient today ____ minutes. Quality Stroke Does the patient have a stroke diagnosis?: No VTE Prior VTE?: No VTE Risk Level:: Medical - moderate - high VTE Device Contraindication: Treatment Not Indicated VTE Drug Contraindication: N/A - Med Ordered
[2023-02-12] MEDS: Insulin Lispro 100 UNIT/ML 3 ML VIAL SUBCUT (21:40)
[2023-02-12] MEDS: Enoxaparin Sodium 40 MG/0.4 ML SYRINGE SUBCUT (21:40)
[2023-02-12] MEDS: Insulin Glargine,Hum.rec.anlog 100 UNIT/ML 10 ML VIAL 20 UNIT SUBCUT (21:41)
[2023-02-12] MEDS: HYDROmorphone HCl 1 MG/ML SYRINGE IVPUSH (21:53)
[2023-02-12] MEDS: 0.9 % Sodium Chloride 1,000 ML 200 ML IVCONT (21:54)
--- NOTE | 2023-02-12 22:13 | PC.NURSE ---
pt medicated according to mar. pt requested pain medication this rn reached out to dr valle regarding prn pain medication as pt states they become very itchy with morphine . pt medicated with prn dilaudid. pt tolerated well
[2023-02-12 22:27] VITALS: BP 168/79; PULSE 89; RESP 18; TEMP 36.6; O2SAT 95
[2023-02-12 22:34] VITALS: BMI 44.9
[2023-02-12 23:37] VITALS: RESP 16
[2023-02-13] VITALS (7 sets, daily range): BP systolic 133–171; BP diastolic 65–93; PULSE 76–91; RESP 16–20; TEMP 36.4–36.9; O2SAT 94–97
[2023-02-13] MEDS: HYDROmorphone HCl 1 MG/ML SYRINGE IVPUSH ×7 (02:16→22:34)
[2023-02-13] MEDS: 0.9 % Sodium Chloride 1,000 ML 200 ML IVCONT (02:18)
[2023-02-13 02:58] LABS: Glucose, Whole Blood 284 mg/dL (60-115)
[2023-02-13] MEDS: Insulin Lispro 100 UNIT/ML 3 ML VIAL SUBCUT ×4 (03:06→22:05)
[2023-02-13] MEDS: ondansetron HCL 4 MG/2 ML VIAL IVPUSH ×2 (05:23→17:31)
[2023-02-13 07:16] LABS: MANUAL DIFF FLAG NO
[2023-02-13 07:21] LABS: Basophils Percent Auto 0.3 % (0-2); Eosinophils Percent Auto 0.1 % (0-4); Hemoglobin 11.9 g/dl (12.0-16.0); Imm Gran Abs Auto 0.06 X10*3/uL (0.00-0.03); Imm Gran Pct Auto 0.5 % (0.0-0.4); Lymphocytes Absolute Auto 1.9 X10*3/uL (1.2-4.9); Lymphocytes Percent Auto 16.4 % (20-40); Mean Corpuscular HGB Conc 31.3 g/dl (31.0-35.0); Mean Corpuscular Hemoglobin 25.2 pg (27.0-33.0); Mean Corpuscular Volume 80.5 fL (80.0-98.0); Mean Platelet Volume 11.1 fL (9.4-12.3); Monocytes Absolute Auto 0.8 X10*3/uL (0.1-1.2); Monocytes Percent Auto 6.6 % (2-11); Neutrophils Percent Auto 76.1 % (45-73); Platelet Count 315 X10*3/uL (160-400); Red Blood Count 4.72 X10*6/uL (4.20-5.50); Red Cell Distribution Width 14.2 % (11.0-16.0); White Blood Count 11.8 X10*3/uL (4.8-10.8)
[2023-02-13 07:38] LABS: Anion Gap 12 (12-20); Blood Urea Nitrogen 9 mg/dL (9-16); Calcium 8.6 mg/dL (8.4-10.2); Carbon Dioxide 25 mmol/L (22-29); Chloride 103 mmol/L (96-108); Creatinine Clr Calc Pharmacy 148.8; Estimated Glomerular Filt Rate > 60; Glucose Random 248 mg/dL (60-115); Potassium 3.8 mmol/L (3.3-5.1); Sodium 136 mmol/L (135-145)
--- NOTE | 2023-02-13 08:00 | P.PNIM_ITS ---
Subjective Subjective Date of Service: 02/13/23 Interval History: f/u on acute pancreatitis interval history: pain is better with pain meds, vomitted this morning Physical Exam Vital Signs: Vital Signs: Last Vital Signs Temp 98.1 F 02/13/23 07:55 Pulse 84 02/13/23 07:55 Resp 18 02/13/23 07:55 BP 164/78 H 02/13/23 07:55 Pulse Ox 94 02/13/23 07:55 O2 Del Method Room Air 02/13/23 07:55 BMI result Body Mass Index 44.9 Const: Other: General: AO X 3, no acute distress Resp: CTA bilateral CVS: S1,S2,RRR GI: +BS, NT, epig tenderness Skin: No rash Neuro: motor grossly intact Psych: appropriate affect Objective Data Active Medications Acetaminophen (Acetaminophen 325 Mg Tablet) 650 mg PO Q6H PRN PRN Reason: Pain, Mild (Pain Scale 1-3) Enoxaparin Sodium (Enoxaparin Sodium 40 Mg/0.4 Ml Syringe) 40 mg SUBCUT Q24H S Last Admin: 02/12/23 21:40 Dose: 40 mg Documented By: SAMUEL Glucose (Glucose Gel 15 Gm Gel..Gram.) 15 gm PO Q15M PRN; Protocol PRN Reason: per Hypoglycemia Standing Ord. Hydromorphone HCl (Hydromorphone Hcl 1 Mg/Ml Syringe) 1 mg IVPUSH Q3H PRN; Protocol PRN Reason: Pain, Severe (Pain Scale 7-10) Last Admin: 02/13/23 05:18 Dose: 1 mg Documented By: ENA Dextrose (D10) 250 mls @ 750 mls/hr IV Q15M PRN; Protocol PRN Reason: per Hypoglycemia Standing Ord. Insulin Glargine (Insulin Glargine,Hum.Rec.Anlog 100 Unit/Ml 10 Ml Vial) 20 un it SUBCUT BEDTIME [facility] Last Admin: 02/12/23 21:41 Dose: 20 unit Documented By: SAMUEL Insulin Human Lispro (Insulin Lispro 100 Unit/Ml 3 Ml Vial) 0 unit SUBCUT Q6H [facility]; Protocol Last Admin: 02/13/23 03:06 Dose: 6 unit Documented By: ENA Melatonin (Melatonin 3 Mg Tablet) 6 mg PO BEDTIME PRN PRN Reason: Insomnia Ondansetron HCl (Ondansetron Hcl 4 Mg/2 Ml Vial) 4 mg IVPUSH Q8H PRN PRN Reason: Nausea and Vomiting Last Admin: 02/13/23 05:23 Dose: 4 mg Documented By: ENA Pharmacy Consult (Consult Rx Perform Med Rec) 1 each MISCELLANE ONCE PRN PRN Reason: Consult order Sodium Chloride (0.9 % Sodium Chloride Flush 3 Ml Syringe) 3 ml IVFLUSH QSHIFT [facility] Last Admin: 02/13/23 00:27 Dose: Not Given Documented By: ENA Non-Admin Reason: IV Running Labs 02/13/23 06:12 02/13/23 06:12 Labs: Laboratory Results - last 24 hr 02/12/23 02/12/23 02/12/23 14:54 14:59 14:59 MCV 78.0 L MCH 24.4 L MCHC 31.4 RDW 14.2 Plt Count 383 MPV 10.5 Immature Gran % (Auto) 0.3 Neut % (Auto) 74.6 H Lymph % (Auto) 15.3 L [place] % (Auto) 8.6 Eos % (Auto) 0.8 Baso % (Auto) 0.4 Lymph # (Auto) 2.4 [place] # (Auto) 1.4 H Eos # (Auto) 0.1 Baso # (Auto) 0.1 Abs Immat Gran (auto) 0.05 H Absolute Neuts (auto) 11.7 H Absolute Nucleated RBC 0.000 Nucleated RBC % (auto) 0.0 Anion Gap 15 Estim Creat Clear Calc 105.7 Estimated GFR > 60 POC Glucose 337 H Random Glucose 363 H* Calcium 9.8 D Total Bilirubin 0.4 Direct Bilirubin 0.1 AST 35 H ALT 37 H Alkaline Phosphatase 76 Troponin I High Sens Total Protein 7.4 Albumin 3.9 Triglycerides Cholesterol LDL Cholesterol, Calc HDL Cholesterol Lipase > 3000 H Beta HCG, Quant Urine Color Urine Appearance Urine pH Ur Specific [place] Urine Protein Urine Glucose (UA) Urine Ketones Urine Blood Urine Nitrite Ur Leukocyte Esterase Urine RBC Urine WBC Ur Squamous Epith Cells Urine Bacteria Hyaline Casts Ethyl Alcohol Acetone, Qual 02/12/23 02/12/23 02/12/23 14:59 14:59 18:01 MCV MCH MCHC RDW Plt Count MPV Immature Gran % (Auto) Neut % (Auto) Lymph % (Auto) [place] % (Auto) Eos % (Auto) Baso % (Auto) Lymph # (Auto) [place] # (Auto) Eos # (Auto) Baso # (Auto) Abs Immat Gran (auto) Absolute Neuts (auto) Absolute Nucleated RBC Nucleated RBC % (auto) Anion Gap Estim Creat Clear Calc Estimated GFR POC Glucose Random Glucose Calcium Total Bilirubin Direct Bilirubin AST ALT Alkaline Phosphatase Troponin I High Sens 4.0 Total Protein Albumin Triglycerides Cholesterol LDL Cholesterol, Calc HDL Cholesterol Lipase Beta HCG, Quant Urine Color Yellow Urine Appearance Clear Urine pH 5.0 Ur Specific [place] 1.020 Urine Protein Negative Urine Glucose (UA) >=1000 H Urine Ketones Trace Urine Blood Negative Urine Nitrite Negative Ur Leukocyte Esterase Negative Urine RBC 3-5 H Urine WBC 0-5 Ur Squamous Epith Cells 0-2 Urine Bacteria None Seen Hyaline Casts 11-20 Ethyl Alcohol Acetone, Qual Negative 02/12/23 02/12/23 02/12/23 18:35 18:35 18:58 MCV MCH MCHC RDW Plt Count MPV Immature Gran % (Auto) Neut % (Auto) Lymph % (Auto) [place] % (Auto) Eos % (Auto) Baso % (Auto) Lymph # (Auto) [place] # (Auto) Eos # (Auto) Baso # (Auto) Abs Immat Gran (auto) Absolute Neuts (auto) Absolute Nucleated RBC Nucleated RBC % (auto) Anion Gap Estim Creat Clear Calc Estimated GFR POC Glucose 403 H* Random Glucose Calcium Total Bilirubin Direct Bilirubin AST ALT Alkaline Phosphatase Troponin I High Sens Total Protein Albumin Triglycerides 97 Cholesterol 220 LDL Cholesterol, Calc 159 HDL Cholesterol 42 Lipase Beta HCG, Quant < 2 Urine Color Urine Appearance Urine pH Ur Specific [place] Urine Protein Urine Glucose (UA) Urine Ketones Urine Blood Urine Nitrite Ur Leukocyte Esterase Urine RBC Urine WBC Ur Squamous Epith Cells Urine Bacteria Hyaline Casts Ethyl Alcohol < 10 Acetone, Qual 02/12/23 02/13/23 02/13/23 20:25 02:52 06:12 MCV 80.5 MCH 25.2 L MCHC 31.3 RDW 14.2 Plt Count 315 MPV 11.1 Immature Gran % (Auto) 0.5 H Neut % (Auto) 76.1 H Lymph % (Auto) 16.4 L [place] % (Auto) 6.6 Eos % (Auto) 0.1 Baso % (Auto) 0.3 Lymph # (Auto) 1.9 [place] # (Auto) 0.8 Eos # (Auto) 0.0 Baso # (Auto) 0.0 Abs Immat Gran (auto) 0.06 H Absolute Neuts (auto) 9.0 H Absolute Nucleated RBC 0.000 Nucleated RBC % (auto) 0.0 Anion Gap Estim Creat Clear Calc Estimated GFR POC Glucose 327 H 284 H Random Glucose Calcium Total Bilirubin Direct Bilirubin AST ALT Alkaline Phosphatase Troponin I High Sens Total Protein Albumin Triglycerides Cholesterol LDL Cholesterol, Calc HDL Cholesterol Lipase Beta HCG, Quant Urine Color Urine Appearance Urine pH Ur Specific [place] Urine Protein Urine Glucose (UA) Urine Ketones Urine Blood Urine Nitrite Ur Leukocyte Esterase Urine RBC Urine WBC Ur Squamous Epith Cells Urine Bacteria Hyaline Casts Ethyl Alcohol Acetone, Qual 02/13/23 06:12 MCV MCH MCHC RDW Plt Count MPV Immature Gran % (Auto) Neut % (Auto) Lymph % (Auto) [place] % (Auto) Eos % (Auto) Baso % (Auto) Lymph # (Auto) [place] # (Auto) Eos # (Auto) Baso # (Auto) Abs Immat Gran (auto) Absolute Neuts (auto) Absolute Nucleated RBC Nucleated RBC % (auto) Anion Gap 12 Estim Creat Clear Calc 148.8 Estimated GFR > 60 POC Glucose Random Glucose 248 H Calcium 8.6 D Total Bilirubin Direct Bilirubin AST ALT Alkaline Phosphatase Troponin I High Sens Total Protein Albumin Triglycerides Cholesterol LDL Cholesterol, Calc HDL Cholesterol Lipase Beta HCG, Quant Urine Color Urine Appearance Urine pH Ur Specific [place] Urine Protein Urine Glucose (UA) Urine Ketones Urine Blood Urine Nitrite Ur Leukocyte Esterase Urine RBC Urine WBC Ur Squamous Epith Cells Urine Bacteria Hyaline Casts Ethyl Alcohol Acetone, Qual Assessment and Plan (1) Acute pancreatitis: Status: Acute Plan 37-year-old female with pertinent history of insulin-dependent diabetes mellitus, essential hypertension, generalized anxiety disorder, mixed hyperlipidemia presents to the emergency department for evaluation of abdominal discomfort. #.? Acute pancreatitis. prior CCY, no Etoh use, nl TG, no biliary duct dilation. At this point etiology not clear -continue management with IVF, pain medication and advance diet slow, carefully review medications and consider gi consult #.? Insulin-dependent diabetes mellitus with hyperglycemia.? -continue Basal insulin at reduced dose + SSI, #.? Essential hypertension.? Patient on lisinopril, Class III for drug induced pancreatitis, hold for now and if needed Norvasc #.? Generalized anxiety disorder.? On hydroxyzine p.r.n. #.? Reactive leukocytosis, related to acute pancreatitis #.? Transaminitis.? Likely in the setting of MAYA # morbid obesity--weight loss advised via exercise and calory restriction Med rec pending DVT prophylaxis: Lovenox Full code Npo, advance diet as tolerated Need for inpatitne: treatment of acute pancreatitis with IVF, IV pain med, until able to tolerate oral Time Spent With Patient Time: Total time managing care of this patient today ____ minutes. Quality Stroke Does the patient have a stroke diagnosis?: No VTE Prior VTE?: No VTE Risk Level:: Medical - moderate - high VTE Device Contraindication: Treatment Not Indicated VTE Drug Contraindication: N/A - Med Ordered
[2023-02-13] MEDS: 0.9 % Sodium Chloride Flush 3 ML SYRINGE IVFLUSH ×2 (08:07→15:42)
[2023-02-13 09:06] LABS: Lipase 310 U/L (8-78)
[2023-02-13 09:20] LABS: Glucose, Whole Blood 233 mg/dL (60-115)
[2023-02-13] MEDS: Gabapentin 400 MG CAPSULE PO ×2 (10:06→22:04)
[2023-02-13] MEDS: Lactated Ringers 1,000 ML 150 ML IVCONT ×2 (10:07→18:32)
--- NOTE | 2023-02-13 15:55 | MHC.CM.PN ---
PT REPORTS SHE LIVES WITH HER SON AND IS INDEPENDENT WITH CARE PT WORKS, HAS NO SERVICES AND ONLY A CPAP FOR DME PT DOES NOT HAVE A HCP HER PCP IS MALIK WELLER DCP: HOME NO SERVICES VIA FAMILY TRANSPORT
[2023-02-13 16:05] LABS: Glucose, Whole Blood 258 mg/dL (60-115)
[2023-02-13] MEDS: Acetaminophen 325 MG TABLET 650 MG PO (17:36)
--- NOTE | 2023-02-13 18:00 | PM.EVENT ---
Event Note Date of Service: 02/13/23 Event Note: GI Consult-Full note dictated Imp: Acute pancreatitis. Clinically stable and nontoxic. No clear etiology at this time based on w/u thus far. Denies EtOH, no suspicious meds and denies any new meds, s/p CCY with basically normal LFT's and no obvious biliary disease on CT, normal TG's, and no significant family history. Need to R/O autoimmune pancreatitis, small CBD stone, pancreas divisum, pancreatic duct stricture; doubt neoplasm. Rec: Supportive care, F/U labs in AM including IgG with subtyping, and MRCP. If the w/u remains negative I advised her that we could then observe things once she is able to be discharged. If the pancreatitis recurs she would then need an Endoscopic U/S of the pancreas and possible ERCP. If the MRCP shows evidence of choledocholithiasis we could then proceed with an ERCP. D/W patient in detail and she is comfortable with this plan. Thanks Time Spent With Patient Time: Total time managing care of this patient today ____ minutes.
[2023-02-13 20:30] LABS: Glucose, Whole Blood 290 mg/dL (60-115)
--- NOTE | 2023-02-13 20:55 | CONS_ITS ---
DATE OF SERVICE: 02/13/2023 REASON FOR CONSULTATION: Acute pancreatitis. HISTORY OF PRESENT ILLNESS: The patient is a 37-year-old female who was in her usual state of health up until awakening yesterday afternoon with the onset of upper abdominal pain with associated nausea and vomiting. She has not had any previous GI complaints similar to this in the past. Due to worsening symptoms, she came to the ER and was found to have pancreatitis based on her laboratories and CT scan. The patient denies any previous history of pancreatitis. She does not use any alcohol. She has not been on any new medication. She did have a cholecystectomy at age 10 due to gallstones but no subsequent problems in that regard. She denies any recent signs of jaundice at home. At home, she was not having any hematemesis nor coffee-grounds emesis. She denies any fevers. She did have some diarrhea but denies any hematochezia nor melena. Since admission here, she does report that she is feeling better with less pain but still having discomfort. She is also having some bloating and nausea. She has been afebrile. The patient denies any known family history of pancreatic disease other than a brother, but she thinks he was using drugs and/or alcohol. There is no family history of pancreatic neoplasm. MEDICATIONS: At home include acetaminophen, albuterol inhaler, vitamin D, gabapentin, hydroxyzine, ibuprofen p.r.n., insulin, lisinopril, and metformin. PAST MEDICAL HISTORY: Cholecystectomy. Hypertension. Hyperlipidemia. Diabetes mellitus. She denies history of DE, stroke nor kidney disease. She does have asthma. SOCIAL HISTORY: She is a medical records clerk. 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 She does smoke some cigarettes every day. She denies alcohol use. She is single. FAMILY HISTORY: Noncontributory. REVIEW OF SYSTEMS: CONSTITUTIONAL: Prior to yesterday, she was feeling well with good energy and good appetite. SKIN: No rash. No pruritus. CARDIAC: No chest pain. PULMONARY: No cough or hemoptysis. GI: As above. URINARY: No dysuria or hematuria. NEUROLOGIC: No headache or seizures. PSYCHIATRIC: Negative. PHYSICAL EXAMINATION: GENERAL: The patient is a pleasant alert female. She appears comfortable. SKIN: Warm and dry. Anicteric sclerae. NECK: Supple. CHEST: Clear. CARDIAC: Normal S1, S2. ABDOMEN: Soft. Normal bowel sounds. There is some upper abdominal tenderness to palpation without mass, rebound, or guarding. EXTREMITIES: Without edema. NEUROLOGICAL: She is alert and oriented. LABORATORY DATA: Normal electrolytes, BUN, and creatinine. Calcium 8.6. Triglyceride level 97. White blood cell count 15.7 on admission and 11.8 today. Hemoglobin 11.9. Platelets 215,000 alcohol. Alcohol level was nondetectable. She had a CT scan of the abdomen and pelvis describing somewhat enlarged liver and fatty liver, but no evidence of any biliary obstruction. There was evidence of acute pancreatitis with some edema surrounding most of the pancreas except for the head of the pancreas. There was no sign of any necrosis nor cyst. There was no sign of any GI tract pathology. Her lipase level was over 3000 on admission yesterday and today is 310. IMPRESSION: The patient presents with acute pancreatitis of unclear etiology. She denies any history of alcohol use and is already status post cholecystectomy, without any sign of biliary disease on her CT scan nor by her laboratories. She is not on any particular suspicious medication nor any new medication that would account for this. There is no significant family history. She does appear to be clinically improving based on her laboratories and her history. At this point, I would rule out autoimmune pancreatitis with IgG subtyping. I would also want to have her undergo MRCP to further inspect her bile duct to rule out a small common duct stone and to further inspect her pancreas to rule out things such as pancreas divisum or pancreatic duct stricture. I doubt this represents a pancreatic neoplasm. I will continue supportive care. Followup labs have been ordered for the morning as well. If the workup is negative and she is doing well, she could then be discharged and we could then observe things as an outpatient. If she has recurrent episodes, she would then need further evaluation with an endoscopic ultrasound and possible ERCP. If the MRCP here shows a common duct stone, she would then need ERCP here instead. This has all been discussed with the patient in detail and she is comfortable with the plan. Thanks for consultation. MD JANE Reynolds/MASON / [phone] SONIA
[2023-02-13] MEDS: Insulin Glargine,Hum.rec.anlog 100 UNIT/ML 10 ML VIAL 20 UNIT SUBCUT (22:04)
[2023-02-13] MEDS: Enoxaparin Sodium 40 MG/0.4 ML SYRINGE SUBCUT (22:04)
[2023-02-14] VITALS (7 sets, daily range): BP systolic 133–186; BP diastolic 60–99; PULSE 70–96; RESP 18–20; TEMP 36–36.9; O2SAT 90–96
[2023-02-14] MEDS: Lactated Ringers 1,000 ML 150 ML IVCONT (01:13)
[2023-02-14] MEDS: HYDROmorphone HCl 1 MG/ML SYRINGE IVPUSH ×7 (01:14→21:53)
[2023-02-14 02:34] LABS: Glucose, Whole Blood 200 mg/dL (60-115)
--- NOTE | 2023-02-14 03:42 | PC.NURSE ---
Assumed care at 1500. Patient alert and oriented. her left upper abdominal pain was a little too strong for the pain medicine as ordered, s/p dilaudid 1 mg Q3 hours, and patient said it took the pain down to 0, but she was already back at 8 or 9 out of 10 before the next dose was available. Patient medicated with tylenol to tide her over until next dose was available. MD notified, new order to increase frequency of dilaudid to Q2 hours PRN, with good effect. Patient NPO for an MRI tomorrow. She had a POC glucose at 230 am of 200. She has eaten poorly all day due to pancreatitis and pain/nausea. Discussed with MD and ok to hold the 2 units per sliding scale.
[2023-02-14 06:16] LABS: MANUAL DIFF FLAG NO
[2023-02-14 06:29] LABS: Basophils Percent Auto 0.4 % (0-2); Eosinophils Absolute Auto 0.1 X10*3/uL (0.0-0.4); Eosinophils Percent Auto 0.8 % (0-4); Hematocrit 34.5 % (37.0-47.0); Hemoglobin 10.7 g/dl (12.0-16.0); Imm Gran Abs Auto 0.06 X10*3/uL (0.00-0.03); Imm Gran Pct Auto 0.6 % (0.0-0.4); Lymphocytes Absolute Auto 1.8 X10*3/uL (1.2-4.9); Mean Corpuscular Hemoglobin 25.2 pg (27.0-33.0); Mean Corpuscular Volume 81.2 fL (80.0-98.0); Monocytes Percent Auto 9.6 % (2-11); Neutrophils Absolute Auto 7.6 x10*3/uL (2.0-8.3); Neutrophils Percent Auto 71.6 % (45-73); Platelet Count 271 X10*3/uL (160-400); Red Blood Count 4.25 X10*6/uL (4.20-5.50); Red Cell Distribution Width 14.4 % (11.0-16.0); White Blood Count 10.6 X10*3/uL (4.8-10.8)
[2023-02-14 06:52] LABS: Alanine Aminotransferase 21 U/L (0-31); Albumin Level 3.3 g/dL (3.5-5.0); Alkaline Phosphatase 57 U/L (39-117); Anion Gap 12 (12-20); Aspartate Amino Transferase 13 U/L (5-31); Bilirubin Direct 0.3 mg/dL (0.0-0.5); Bilirubin Total 0.9 mg/dL (0.0-1.0); Blood Urea Nitrogen 7 mg/dL (9-16); Calcium 8.6 mg/dL (8.4-10.2); Carbon Dioxide 27 mmol/L (22-29); Chloride 100 mmol/L (96-108); Creatinine Clr Calc Pharmacy 157.5; Estimated Glomerular Filt Rate > 60; Glucose Fasting 237 mg/dL (60-99); Lipase 75 U/L (8-78); Potassium 3.8 mmol/L (3.3-5.1); Sodium 135 mmol/L (135-145); Total Protein 6.2 g/dL (6.5-8.0)
[2023-02-14] MEDS: Gabapentin 400 MG CAPSULE PO ×2 (07:31→20:08)
[2023-02-14] MEDS: 0.9 % Sodium Chloride Flush 3 ML SYRINGE IVFLUSH ×2 (07:31→15:20)
[2023-02-14] MEDS: amLODIPine Besylate 2.5 MG TABLET PO (08:40)
[2023-02-14] MEDS: ondansetron HCL 4 MG/2 ML VIAL IVPUSH (09:57)
[2023-02-14 10:22] LABS: Glucose, Whole Blood 217 mg/dL (60-115)
--- NOTE | 2023-02-14 12:51 | HO.PM.IMPN ---
Subjective Subjective Date of Service: 02/14/23 Interval History: Acute pancreatitis, uncontrolled hypertension Review of Systems Patient still has abdominal pain, still feel nauseated unable to tolerate p.o. yet. No fever or chills Physical Exam Vital Signs: Vital Signs: Last Vital Signs Temp 98.5 F 02/14/23 07:34 Pulse 82 02/14/23 07:34 Resp 18 02/14/23 07:34 BP 181/91 H 02/14/23 07:34 Pulse Ox 96 02/14/23 07:34 O2 Del Method Room Air 02/14/23 07:34 BMI result Body Mass Index 44.9 General: AO X 3, no acute distress Resp:? CTA bilateral CVS: S1,S2,RRR GI: +BS, NT, epig tenderness Skin: No rash Neuro:? motor grossly intact Psych: appropriate affect Objective Data Active Medications Acetaminophen (Acetaminophen 325 Mg Tablet) 650 mg PO Q6H PRN PRN Reason: Pain, Mild (Pain Scale 1-3) Last Admin: 02/13/23 17:36 Dose: 650 mg Documented By: JOHNNY Albuterol Sulfate (Albuterol Sulfate 90 Mcg 8 Gm Inhaler) 2 puff INHALE Q4H PRN PRN Reason: Wheezing Amlodipine Besylate (Amlodipine Besylate 2.5 Mg Tablet) 2.5 mg PO DAILY [facility]; Protocol Last Admin: 02/14/23 08:40 Dose: 2.5 mg Documented By: SARINA Enoxaparin Sodium (Enoxaparin Sodium 40 Mg/0.4 Ml Syringe) 40 mg SUBCUT Q24H [facility] Last Admin: 02/13/23 22:04 Dose: 40 mg Documented By: JOHNNY Gabapentin (Gabapentin 400 Mg Capsule) 400 mg PO BID [facility] Last Admin: 02/14/23 07:31 Dose: 400 mg Documented By: SARINA Glucose (Glucose Gel 15 Gm Gel..Gram.) 15 gm PO Q15M PRN; Protocol PRN Reason: per Hypoglycemia Standing Ord. Hydromorphone HCl (Hydromorphone Hcl 1 Mg/Ml Syringe) 1 mg IVPUSH Q2H PRN; Protocol PRN Reason: Pain, Severe (Pain Scale 7-10) Last Admin: 02/14/23 09:57 Dose: 1 mg Documented By: SARINA Hydroxyzine HCl (Hydroxyzine Hcl 50 Mg Tablet) 50 mg PO DAILY PRN PRN Reason: for anxiety Dextrose (D10) 250 mls @ 750 mls/hr IV Q15M PRN; Protocol PRN Reason: per Hypoglycemia Standing Ord. Lactated Ringer's (Lr) 1,000 mls @ 100 mls/hr IVCONT .Q10H [facility] Last Infusion: 02/14/23 04:53 Dose: 150 mls/hr Documented By: MARTIN Insulin Glargine (Insulin Glargine,Hum.Rec.Anlog 100 Unit/Ml 10 Ml Vial) 20 unit SUBCUT BEDTIME [facility] Last Admin: 02/13/23 22:04 Dose: 1 unit Documented By: JOHNNY Insulin Human Lispro (Insulin Lispro 100 Unit/Ml 3 Ml Vial) 0 unit SUBCUT Q6H [facility]; Protocol Last Admin: 02/14/23 10:39 Dose: Not Given Documented By: SARINA Non-Admin Reason: NPO Melatonin (Melatonin 3 Mg Tablet) 6 mg PO BEDTIME PRN PRN Reason: Insomnia Ondansetron HCl (Ondansetron Hcl 4 Mg/2 Ml Vial) 4 mg IVPUSH Q8H PRN PRN Reason: Nausea and Vomiting Last Admin: 02/14/23 09:57 Dose: 4 mg Documented By: SARINA Pharmacy Consult (Consult Rx Perform Med Rec) 1 each MISCELLANE ONCE PRN PRN Reason: Consult order Sodium Chloride (0.9 % Sodium Chloride Flush 3 Ml Syringe) 3 ml IVFLUSH QSHIFT [facility] Last Admin: 02/14/23 07:31 Dose: 3 ml Documented By: SARINA Vitamin D (Cholecalciferol (Vitamin D3) 25 Mcg Tablet) 50 mcg PO DAILY [facility] Last Admin: 02/14/23 07:31 Dose: Not Given Documented By: SARINA Non-Admin Reason: NPO Labs 02/14/23 05:29 02/14/23 05:29 Labs: Laboratory Results - last 24 hr 02/13/23 02/13/23 02/14/23 15:24 19:35 02:29 MCV MCH MCHC RDW Plt Count MPV Immature Gran % (Auto) Neut % (Auto) Lymph % (Auto) [place] % (Auto) Eos % (Auto) Baso % (Auto) Lymph # (Auto) [place] # (Auto) Eos # (Auto) Baso # (Auto) Abs Immat Gran (auto) Absolute Neuts (auto) Absolute Nucleated RBC Nucleated RBC % (auto) Anion Gap Estim Creat Clear Calc Estimated GFR POC Glucose 258 H 290 H 200 H Fasting Glucose Calcium Total Bilirubin Direct Bilirubin AST ALT Alkaline Phosphatase Total Protein Albumin Lipase 02/14/23 02/14/23 02/14/23 05:29 05:29 10:16 MCV 81.2 MCH 25.2 L MCHC 31.0 RDW 14.4 Plt Count 271 MPV 11.0 Immature Gran % (Auto) 0.6 H Neut % (Auto) 71.6 Lymph % (Auto) 17.0 L [place] % (Auto) 9.6 Eos % (Auto) 0.8 Baso % (Auto) 0.4 Lymph # (Auto) 1.8 [place] # (Auto) 1.0 Eos # (Auto) 0.1 Baso # (Auto) 0.0 Abs Immat Gran (auto) 0.06 H Absolute Neuts (auto) 7.6 Absolute Nucleated RBC 0.000 Nucleated RBC % (auto) 0.0 Anion Gap 12 Estim Creat Clear Calc 157.5 Estimated GFR > 60 POC Glucose 217 H Fasting Glucose 237 H Calcium 8.6 Total Bilirubin 0.9 Direct Bilirubin 0.3 AST 13 ALT 21 Alkaline Phosphatase 57 Total Protein 6.2 L Albumin 3.3 L Lipase 75 Assessment and Plan (1) Acute pancreatitis: Status: Acute Plan 37-year-old female with pertinent history of insulin-dependent diabetes mellitus, essential hypertension, generalized anxiety disorder, mixed hyperlipidemia presents to the emergency department for evaluation of abdominal discomfort. ? Acute pancreatitis. prior CCY, no Etoh use, nl TG, no biliary duct dilation. At this point etiology not clear seen by GI-immunologies ,mrcp added continue management with IVF, pain medication and advance diet slow, carefully review medications and consider gi consult ? Insulin-dependent diabetes mellitus with hyperglycemia.? continue Basal insulin at reduced dose + SSI, Essential hypertension.? Lisinopril on hold due to pancreatitis. added Norvasc Generalized anxiety disorder.? On hydroxyzine p.r.n. Reactive leukocytosis, related to acute pancreatitis Transaminitis.? Likely in the setting of MAYA morbid obesity--weight loss advised via exercise and calory restriction DVT prophylaxis: Lovenox Full code Npo, advance diet as tolerated Need for inpatitne: treatment of acute pancreatitis with IVF, IV pain med, until able to tolerate oral Time Spent With Patient Time: Total time managing care of this patient today ____ minutes. Quality Stroke Does the patient have a stroke diagnosis?: No VTE Prior VTE?: No VTE Risk Level:: Medical - moderate - high VTE Device Contraindication: Treatment Not Indicated VTE Drug Contraindication: N/A - Med Ordered
[2023-02-14] MEDS: Lactated Ringers 1,000 ML 100 ML IVCONT ×2 (13:53→23:51)
[2023-02-14 15:09] LABS: Glucose, Whole Blood 241 mg/dL (60-115)
[2023-02-14] MEDS: Insulin Lispro 100 UNIT/ML 3 ML VIAL SUBCUT ×2 (15:19→21:47)
[2023-02-14] MEDS: Acetaminophen 325 MG TABLET 650 MG PO (15:28)
[2023-02-14 16:17] LABS: Glucose, Whole Blood 281 mg/dL (60-115)
[2023-02-14 17:47] LABS: Glucose, Whole Blood 301 mg/dL (60-115)
--- NOTE | 2023-02-14 17:58 | PC.NURSE ---
lantus insulin to be held tonight per Dr. Alcantar
[2023-02-14] MEDS: Enoxaparin Sodium 40 MG/0.4 ML SYRINGE SUBCUT (20:08)
[2023-02-14 20:27] LABS: Glucose, Whole Blood 242 mg/dL (60-115)
--- NOTE | 2023-02-14 21:08 | PC.NURSE ---
BS 242 no coverage is ordered ,Dr. Jimenez notified
[2023-02-15] MEDS: HYDROmorphone HCl 1 MG/ML SYRINGE IVPUSH ×5 (01:42→20:26)
[2023-02-15 03:24] VITALS: BP 140/63; PULSE 82; RESP 16; TEMP 36.1; O2SAT 92
[2023-02-15 07:22] LABS: Glucose, Whole Blood 197 mg/dL (60-115)
[2023-02-15 08:00] VITALS: BP 142/73; PULSE 81; RESP 18; TEMP 36.3; O2SAT 92
[2023-02-15] MEDS: Insulin Lispro 100 UNIT/ML 3 ML VIAL SUBCUT ×4 (08:06→21:36)
[2023-02-15] MEDS: 0.9 % Sodium Chloride Flush 3 ML SYRINGE IVFLUSH ×3 (08:07→23:59)
[2023-02-15] MEDS: Gabapentin 400 MG CAPSULE PO ×2 (08:07→20:27)
[2023-02-15] MEDS: Cholecalciferol (Vitamin D3) 25 MCG TABLET 50 MCG PO (08:07)
[2023-02-15] MEDS: amLODIPine Besylate 2.5 MG TABLET PO (08:07)
[2023-02-15] MEDS: Simethicone 80 MG TAB.CHEW PO (10:58)
[2023-02-15] MEDS: ondansetron HCL 4 MG/2 ML VIAL IVPUSH (10:58)
[2023-02-15 11:31] LABS: Glucose, Whole Blood 230 mg/dL (60-115)
--- NOTE | 2023-02-15 13:15 | MHC.CM.NN ---
pt dcd home no skilled servceis ordered by
[2023-02-15] MEDS: Insulin Glargine,Hum.rec.anlog 100 UNIT/ML 10 ML VIAL 20 UNIT SUBCUT (14:39)
[2023-02-15 16:00] VITALS: BP 127/65; PULSE 72; RESP 19; TEMP 36.3; O2SAT 96
--- NOTE | 2023-02-15 16:14 | P.PNIM_ITS ---
Subjective Subjective Date of Service: 02/15/23 Interval History: Acute pancreatitis, uncontrolled hypertension Review of Systems Patient still has abdominal pain but improving, can not tolerate diet-vomited as soon as she 8. Just for No fever or chills Physical Exam Vital Signs: Vital Signs: Last Vital Signs Temp 97.3 F 02/15/23 16:00 Pulse 72 02/15/23 16:00 Resp 19 02/15/23 16:00 BP 127/65 02/15/23 16:00 Pulse Ox 96 02/15/23 16:00 O2 Del Method Room Air 02/15/23 16:00 BMI result Body Mass Index 44.9 General: AO X 3, no acute distress Resp:? CTA bilateral CVS: S1,S2,RRR GI: +BS, NT, epig tenderness seems improving Skin: No rash Neuro:? motor grossly intact Psych: appropriate affect Objective Data Active Medications Acetaminophen (Acetaminophen 325 Mg Tablet) 650 mg PO Q6H PRN PRN Reason: Pain, Mild (Pain Scale 1-3) Last Admin: 02/14/23 15:28 Dose: 650 mg Documented By: SHARON Albuterol Sulfate (Albuterol Sulfate 90 Mcg 8 Gm Inhaler) 2 puff INHALE Q4H PRN PRN Reason: Wheezing Amlodipine Besylate (Amlodipine Besylate 2.5 Mg Tablet) 2.5 mg PO DAILY [facility]; Protocol Last Admin: 02/15/23 08:07 Dose: 2.5 mg Documented By: SARINA Enoxaparin Sodium (Enoxaparin Sodium 40 Mg/0.4 Ml Syringe) 40 mg SUBCUT Q24H [facility] Last Admin: 02/14/23 20:08 Dose: 40 mg Documented By: SHARON Gabapentin (Gabapentin 400 Mg Capsule) 400 mg PO BID [facility] Last Admin: 02/15/23 08:07 Dose: 400 mg Documented By: SARINA Glucose (Glucose Gel 15 Gm Gel..Gram.) 15 gm PO Q15M PRN; Protocol PRN Reason: per Hypoglycemia Standing Ord. Glucose (Glucose Gel 15 Gm Gel..Gram.) 15 gm PO Q15M PRN; Protocol PRN Reason: per Hypoglycemia Standing Ord. Hydromorphone HCl (Hydromorphone Hcl 1 Mg/Ml Syringe) 1 mg IVPUSH Q2H PRN; Protocol PRN Reason: Pain, Severe (Pain Scale 7-10) Last Admin: 02/15/23 14:38 Dose: 1 mg Documented By: SARINA Hydroxyzine HCl (Hydroxyzine Hcl 50 Mg Tablet) 50 mg PO DAILY PRN PRN Reason: for anxiety Dextrose (D10) 250 mls @ 750 mls/hr IV Q15M PRN; Protocol PRN Reason: per Hypoglycemia Standing Ord. Dextrose (D10) 250 mls @ 750 mls/hr IV Q15M PRN; Protocol PRN Reason: per Hypoglycemia Standing Ord. Insulin Glargine (Insulin Glargine,Hum.Rec.Anlog 100 Unit/Ml 10 Ml Vial) 20 unit SUBCUT BEDTIME [facility] Last Admin: 02/15/23 14:39 Dose: 20 unit Documented By: SARINA Insulin Human Lispro (Insulin Lispro 100 Unit/Ml 3 Ml Vial) 0 unit SUBCUT QIDACHS [facility]; Protocol Last Admin: 02/15/23 12:09 Dose: 4 unit Documented By: SARINA Melatonin (Melatonin 3 Mg Tablet) 6 mg PO BEDTIME PRN PRN Reason: Insomnia Ondansetron HCl (Ondansetron Hcl 4 Mg/2 Ml Vial) 4 mg IVPUSH Q8H PRN PRN Reason: Nausea and Vomiting Last Admin: 02/15/23 10:58 Dose: 4 mg Documented By: SARINA Pharmacy Consult (Consult Rx Perform Med Rec) 1 each MISCELLANE ONCE PRN PRN Reason: Consult order Sodium Chloride (0.9 % Sodium Chloride Flush 3 Ml Syringe) [facility] Last Admin: 02/15/23 15:29 Dose: 3 ml Documented By: SHARON Vitamin D (Cholecalciferol (Vitamin D3) 25 Mcg Tablet) 50 mcg PO DAILY [facility] Last Admin: 02/15/23 08:07 Dose: 50 mcg Documented By: SARINA Labs 02/14/23 05:29 02/14/23 05:29 Labs: Laboratory Results - last 24 hr 02/14/23 02/14/23 02/14/23 16:08 17:43 20:17 POC Glucose 281 H 301 H 242 H 02/15/23 02/15/23 07:18 11:28 POC Glucose 197 H 230 H Assessment and Plan (1) Acute pancreatitis: Status: Acute Plan 37-year-old female with pertinent history of insulin-dependent diabetes mellitus, essential hypertension, generalized anxiety disorder, mixed hyperlipidemia presents to the emergency department for evaluation of abdominal discomfort. ? Acute pancreatitis. prior CCY, no Etoh use, nl TG, no biliary duct dilation. At this point etiology not clear seen by GI-immunologies ,mrcp neg still intermittent abd pain,nausea,vomiting ( vomited out as soon as ate). continue management with IVF, pain medication and advance diet slow, carefully review medications and consider gi consult ? Insulin-dependent diabetes mellitus with hyperglycemia.? continue Basal insulin at reduced dose + SSI, ?Essential hypertension.? Lisinopril on hold due to pancreatitis. added Norvasc ?Generalized anxiety disorder.? On hydroxyzine p.r.n. ?Reactive leukocytosis, related to acute pancreatitis ?Transaminitis.? Likely in the setting of MAYA morbid obesity--weight loss advised via exercise and calory restriction DVT prophylaxis: Lovenox Full code Npo, advance diet as tolerated Need for inpatitne: treatment of acute pancreatitis with IVF, IV pain med, until able to tolerate oral Time Spent With Patient Time: Total time managing care of this patient today ____ minutes. Quality Stroke Does the patient have a stroke diagnosis?: No VTE Prior VTE?: No VTE Risk Level:: Medical - moderate - high VTE Device Contraindication: Treatment Not Indicated VTE Drug Contraindication: N/A - Med Ordered
[2023-02-15 16:28] LABS: Glucose, Whole Blood 260 mg/dL (60-115)
[2023-02-15 20:00] VITALS: BP 136/74; PULSE 64; RESP 16; TEMP 36.4; O2SAT 93
[2023-02-15] MEDS: Enoxaparin Sodium 40 MG/0.4 ML SYRINGE SUBCUT (20:27)
[2023-02-15 21:07] LABS: Glucose, Whole Blood 229 mg/dL (60-115)
[2023-02-15] MEDS: Dextrose 5 % 1,000 ML 100 ML IVCONT (22:38)
[2023-02-15] MEDS: Acetaminophen 325 MG TABLET 650 MG PO (22:43)
[2023-02-16] MEDS: Lactated Ringers 1,000 ML 100 ML IVCONT (00:28)
[2023-02-16] MEDS: HYDROmorphone HCl 1 MG/ML SYRINGE IVPUSH ×3 (01:20→10:23)
[2023-02-16 03:50] VITALS: BP 137/69; PULSE 64; RESP 16; TEMP 35.7; O2SAT 93
[2023-02-16 07:29] VITALS: BP 133/68; PULSE 69; RESP 18; TEMP 36.2; O2SAT 94
[2023-02-16] MEDS: Insulin Lispro 100 UNIT/ML 3 ML VIAL SUBCUT ×2 (08:01→12:25)
[2023-02-16] MEDS: amLODIPine Besylate 2.5 MG TABLET PO (08:01)
[2023-02-16] MEDS: Cholecalciferol (Vitamin D3) 25 MCG TABLET 50 MCG PO (08:01)
[2023-02-16] MEDS: Gabapentin 400 MG CAPSULE PO (08:01)
[2023-02-16] MEDS: 0.9 % Sodium Chloride Flush 3 ML SYRINGE IVFLUSH (08:02)
[2023-02-16 08:19] LABS: Glucose, Whole Blood 203 mg/dL (60-115)
[2023-02-16] MEDS: polyethylene glycoL 3350 17 GM POWD.PACK PO (10:05)
[2023-02-16] MEDS: Famotidine 20 MG TABLET PO (10:05)
[2023-02-16] MEDS: Simethicone 80 MG TAB.CHEW 160 MG PO (10:05)
[2023-02-16 11:17] LABS: Glucose, Whole Blood 273 mg/dL (60-115)
--- NOTE | 2023-02-16 11:20 | PM.DS ---
DS: Providers Provider Date of Service: 02/16/23 Date of admission: 02/12/23 20:54 Date of discharge: 02/16/23 Primary care physician: Shaun Nolan MD Consults: 02/13/23 08:08 Consult to Gastroenterology Routine Consulting Provider: Lukasz Harris Reason for consultation: idiopathic pancreatitis Has provider been notified: No Attending physician on discharge: Iain Alcantar Discharging clinician: Iain Alcantar DS: Diagnosis Discharge Diagnosis (1) Acute pancreatitis: Status: Acute DS: Summary Hospital Course Hospital Course: 37-year-old female with pertinent history of insulin-dependent diabetes mellitus, essential hypertension, generalized anxiety disorder, mixed hyperlipidemia presents to the emergency department for evaluation of abdominal discomfort.? Patient states around 14:00, she had sudden onset of epigastric abdominal discomfort.? It remained constant, nonradiating without any relieving factors.? No history of similar complaints in the past.? Patient also had 3 episodes of nonbloody emesis after the onset of abdominal discomfort.? She denies significant alcohol use.? Had a cholecystectomy when she was 10 years old.? Patient denies fever, chills, palpitations, chest discomfort, shortness of breath, changes in urinary habits In the emergency department, imaging concerning for acute pancreatitis and lipase was found to be significantly elevated. Hospital course: Patient came to the hospital because of abdominal pain: Found to have acute pancreatitis- started on bowel rest, IV pain medications-workup for pancreatitis sent-including immunoglobulin subtypes, in addition patient also had MRCP abdomen which seems to be fine, seen by GI-recommended to advanced diet and if she tolerates them will plan discharge-outpatient follow-up with pending testing immunoglobulin subtypes as well as further GI workup if needed. htn -stopped lisinopril for now , started amlodipine for htn. Patient is to follow up outpatient with PCP and GI. Plan: Follow-up hemoglobin sometimes outpatient with GI and workup out patiently with GI. Lisinopril on hold until cleared by GI. Follow-up outpatient with PCP. Above management discussed with the patient in detail length she understand in agreement with the above plan, Time Spent with Patient Time attestation: Total time managing care of this patient today ____ minutes. Discharge coordination time: Greater than 30 minutes Quality: Safe Use of Opioids Does Pt have an Active Cancer Diagnosis on the Problem List?: No Quality: Stroke Does the patient have a stroke diagnosis?: No Physical Exam Vital Signs: Vital Signs: Last Vital Signs Temp 97.2 F 02/16/23 07:29 Pulse 69 02/16/23 07:29 Resp 18 02/16/23 07:29 BP 133/68 02/16/23 07:29 Pulse Ox 94 02/16/23 07:29 O2 Del Method Room Air 02/16/23 07:29 BMI result Body Mass Index 44.9 General: AO X 3, no acute distress Resp:? CTA bilateral CVS: S1,S2,RRR GI: +BS, NT, nd,bs present. Skin: No rash Neuro:? motor grossly intact Psych: appropriate affect DS: Data Data Completed and Pending Labs on day of discharge: Laboratory Results - last 24 hr 02/15/23 02/15/23 02/15/23 11:28 16:24 21:03 POC Glucose 230 H 260 H 229 H 02/16/23 02/16/23 07:37 11:14 POC Glucose 203 H 273 H Imaging Chest x-ray: Radiologist's impression: ITS Impressions Abdomen/Pelvis CT 02/12/23 19:41 IMPRESSION: 1. Acute uncomplicated pancreatitis. 2. Incidental note made of an enlarged fatty liver and mild splenomegaly. 3. Benign 1 cm left adrenal adenoma. Fleischner guidelines were followed. Cholangiopancreatography MRI 02/14/23 12:10 IMPRESSION: Normal size common bile duct and pancreatic duct. No intraluminal filling defect, narrowing or obstruction. No intrahepatic ductal dilatation. Mild peripancreatic fat stranding along the tail similar to CT abdomen scan 02/12/2023. Small 1.1 cm left adrenal lesion likely benign adenoma. It measured -[address] abdomen exam. Discharge Plan Discharge Anticipated Discharge Date/Time: 02/15/23 12:58 Patient Disposition: Home, Self-Care Discharge Diagnosis: Acute pancreatitis Referrals: Shaun Nolan MD [Primary Care Provider] - 1 Week Lukasz Harris [Physician] - 1 Week (follow up outpatient) Discharge Medications: New amlodipine 2.5 mg Tablet 2.5 mg PO DAILY Qty: 30 0RF Protocol: Hold for SBP< HOLD for SBP < : 90 famotidine 20 mg Tablet 20 mg PO BID Qty: 30 0RF docusate sodium [Colace] 100 mg capsule 100 mg PO DAILY Qty: 30 0RF Continued (DME) insulin syringe,safetyneedle 1 mL 30 gauge x 5/16 syringe See Rx Instructions .Route Qty: 100 3RF Rx Instructions: 4 times daily (DME) FreeStyle Kenny 2 [place] Misc See Rx Instructions .Route Qty: 1 3RF Rx Instructions: As directed (DME) FreeStyle Kenny 2 Sensor Kit See Rx Instructions .Route Qty: 1 5RF Rx Instructions: As directed acetaminophen 500 mg Tablet 500 mg PO Q6H PRN (Reason: Fever Or Pain) ibuprofen 200 mg Tablet 200 mg PO Q6H PRN (Reason: Fever Or Pain) insulin glargine 100 unit/mL solution 50 unit subcut DAILY hydroxyzine HCl 50 mg tablet 50 mg PO DAILY PRN (Reason: for anxiety) insulin lispro 100 unit/mL solution 20 unit subcut DAILY metformin 500 mg tablet extended release 24 hr 1,500 mg PO DAILY albuterol sulfate 90 mcg/actuation Hfa Aerosol Inhaler 2 puff INHALATION Q4H PRN (Reason: Wheezing) cholecalciferol (vitamin D3) 50 mcg (2,000 unit) capsule 50 mcg PO DAILY 90 Days Qty: 90 3RF (DME) FreeStyle Kenny 14 Day [place] Misc See Rx Instructions .Route Qty: 1 5RF Rx Instructions: As directed (DME) FreeStyle Kenny 14 Day Sensor Kit See Rx Instructions .Route Qty: 1 5RF Rx Instructions: As directed gabapentin 400 mg capsule 400 mg PO BID 30 Days Qty: 60 3RF Discontinued lisinopril 20 mg tablet 20 mg PO DAILY 90 Days Qty: 90 1RF Discharge Orders: Discharge Order (Routine); Ordered 02/15/23 Ordered By: Iain Alcantar Diet: Advance to usual diet Activity on Discharge: As tolerated Stand Alone Forms: Patient Portal Discharge page, Work/School Release Care Plan Goals: Patient came to the hospital because of abdominal pain: Found to have acute pancreatitis- started on bowel rest, IV pain medications-workup for pancreatitis sent-including immunoglobulin subtypes, in addition patient also had MRCP abdomen which seems to be fine, seen by GI-recommended to advanced diet and if she tolerates them will plan discharge-outpatient follow-up with pending testing immunoglobulin subtypes as well as further GI workup if needed. htn -stopped lisinopril for now , started amlodipine for htn. Patient is to follow up outpatient with PCP and GI. Health Concerns: As above. Plan of Treatment: As above. Assessment: As above.
[2023-02-17 14:48] LABS: Immunoglobulin G Subclass 1 434 mg/dL (382-929); Immunoglobulin G Subclass 2 511 mg/dL (241-700); Immunoglobulin G Subclass 3 27 mg/dL (22-178); Immunoglobulin G Subclass 4 19.5 mg/dL (4-86); Immunoglobulin G Total 976 mg/dL (600-1640)
== END 2023-02-16 13:17 | disposition home or self-care (01) | DRG 282 ==
LOC: HO.ED 21:24 → HO.EDOVER 21:28 → HO.S3 21:36
PROVIDERS: Internal Medicine; Admitting Provider Student in an Organized Health Care Education/Training Program; Emergency Provider Emergency Medicine; PCP Internal Medicine; Visit Provider Internal Medicine
DX: K85.90 Acute pancreatitis without necrosis or infection, unspecified (principal); K75.81 Nonalcoholic steatohepatitis (NASH); E11.65 Type 2 diabetes mellitus with hyperglycemia; E66.01 Morbid (severe) obesity due to excess calories; Z68.41 Body mass index [BMI] 40.0-44.9, adult; I10 Essential (primary) hypertension; F41.1 Generalized anxiety disorder; J45.909 Unspecified asthma, uncomplicated; E78.2 Mixed hyperlipidemia; F17.210 Nicotine dependence, cigarettes, uncomplicated; Z71.3 Dietary counseling and surveillance; Z71.6 Tobacco abuse counseling; Z79.4 Long term (current) use of insulin; Z79.84 Long term (current) use of oral hypoglycemic drugs; Z79.899 Other long term (current) drug therapy
CPT/HCPCS: 36415; 74176; 74181; 80048; 80061; 80076; 80307; 81001; 82009; 82784; 82947; 83690; 84484; 84702; 85025; 93005; 99285; J1170; J1650; J2405